=== PATIENT | male | born 1950 | race Caucasian/White ===

== ENCOUNTER 2021-01-16 13:31 | Emergency (ER) | payer MEDICARE ==
--- NOTE | 2021-01-16 13:40 | EDM.PDOC ---
ED HPI GENERAL MEDICAL PROBLEM - General Stated Complaint: SOB, COUGH Time Seen by Provider: 01/16/21 13:38 Source of Information: Reports: Patient History Limitations: Reports: No Limitations - History of Present Illness INITIAL COMMENTS - FREE TEXT/NARRATIVE: 70-year-old male who reports onset of nasal congestion, cough, body aches and nausea with diarrhea beginning approximately 01/09/2021.e reports that he lost taste and smell sense on about day 2 or 3 and he reports that he has had little appetite and poor food intake. He also has been having some intermittent subjective fevers. He reports he has been trying to drink liquids and has had good urine output. He feels that the diarrhea has become less that was initially but he did have one loose stool today. There was no blood in his stool. He has had no vomiting. He feels that the cough has been progressively worsening and he feels somewhat short of breath with the coughing episodes. The cough has been hacking and mostly nonproductive. He does feel weak all over. Today, at approximately 1 PM, he was sitting in his office at home and apparently had a syncopal episode. He had been feeling somewhat weak prior to this and his came back to check on him and noted that he was slumped over in the chair and was not responsive to her. There was no seizure activity noted by the . The patient came to within a minute or less and was apparently responding normally but the patient didn't feel weak at this time. He did not have any chest pain. He denies any pain in reports 0/10 level pain at present. He does report that he has had some mild generalized body aches but no chest pain or abdominal pain or back pain previously as well. He did not receive the Covid 19 vaccine. There are no other associated signs or symptoms. There are no other modifying factors. Onset: Other (01/09/2021) Duration: Getting Worse Location: Reports: Generalized (Mild generalized bodyaches but he denies any pain right now.) Quality: Reports: Ache Severity: Mild Improves with: Reports: None Worsens with: Reports: None Context: Reports: Other (As above.) Associated Symptoms: Reports: Cough, Fever/Chills, Shortness of Breath Treatments [employer] WORK[employer]: Reports: Acetaminophen, Other Medication(s) (Prednisone 20 mg daily for the past 3 days.) - Related Data Allergies Allergy/AdvReac Type Severity Reaction Status Date / Time No Known Allergies Allergy Verified 01/16/21 13:39 Home Meds: Home Meds Aspirin 81 mg DAILY 01/16/21 [History] Benzonatate [Tessalon Perle] 100 mg PO Q6H PRN #20 capsule 01/16/21 [Rx] Cetirizine [ZyrTEC] 10 mg DAILY 01/16/21 [History] Folic Acid 1 mg DAILY 01/16/21 [History] Losartan [Cozaar] 100 mg PO DAILY 01/16/21 [History] Methotrexate 2.5 mg PO WEEKLY 01/16/21 [History] Sildenafil [Revatio] 20 mg TID 01/16/21 [History] Simvastatin 80 mg BEDTIME 01/16/21 [History] cephALEXin [Cephalexin] 500 mg TID 01/16/21 [History] traZODone 100 mg DAILY 01/16/21 [History] Past Medical History Cardiovascular History: Reports: Hypertension, Other (See Below) (Hyperlipidemi a) Respiratory History: Reports: Sleep Apnea (On CPAP) Musculoskeletal History: Reports: Osteoarthritis, RA, Other (See Below) (PMR) Dermatologic History: Reports: Other (See Below) (Periodic hydradenitis. Lower extremity vascular insufficiency bilaterally) - Past Surgical History HEENT Surgical History: Reports: Detached Retina GI Surgical History: Reports: Hernia, Abdominal (Umbilical), Hernia, Inguinal (2) Neurological Surgical History: Reports: Laminectomy (With fusion in the lumbar region) Musculoskeletal Surgical History: Reports: Other (See Below) (Knee arthrodesis) Social & Family History - Tobacco Use Tobacco Use Status *Q: Unknown Ever Used Tobacco (Nonsmoker.) - Alcohol Use Alcohol Use History: Yes Alcohol Use Frequency: Weekly (Uses one to 2 ounces 3-4 times a week.) - Recreational Drug Use Recreational Drug Use: No - Living Situation & Occupation Living situation: Reports: Occupation: Retired 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 ED ROS GENERAL - Review of Systems Review Of Systems: See Below Constitutional: Reports: Fever, Malaise, Weakness, Fatigue, Diaphoresis, Decreased Appetite HEENT: Reports: Throat Pain, Other (Nasal congestion.) Respiratory: Reports: Shortness of Breath, Cough Cardiovascular: Reports: Lightheadedness, Syncope. Denies: Chest Pain Endocrine: Reports: Fatigue GI/Abdominal: Reports: Diarrhea, Nausea. Denies: Abdominal Pain, Vomiting : Denies: Dysuria, Hematuria Musculoskeletal: Reports: Other (Some generalized body aches.) Skin: Reports: Diaphoresis (As above). Denies: Cyanosis, Rash Neurological: Reports: Syncope. Denies: Headache Hematologic/Lymphatic: Denies: Anemia, Easy Bleeding ED EXAM, GENERAL - Physical Exam Exam: See Below Exam Limited By: No Limitations General Appearance: Alert, WD/WN, No Apparent Distress (No respiratory distress.) Eye Exam: Bilateral Eye: EOMI, Normal Inspection Ears: Normal External Exam, Hearing Grossly Normal Ear Exam: Bilateral Ear: Auricle Normal Nose: No Blood, Nasal Drainage Throat/Mouth: Normal Voice, No Airway Compromise, Other (Dry mucous membranes) Head: Atraumatic, Normocephalic Neck: Normal Inspection, Supple, Non-Tender, Full Range of Motion Respiratory/Chest: No Respiratory Distress, No Accessory Muscle Use, Chest Non- Tender, Rales (Scattered bilaterally), Rhonchi (Bilaterally.) Cardiovascular: Normal Peripheral Pulses, Regular Rate, Rhythm, No JVD, No Murmur Peripheral Pulses: 2+: Radial (L), Radial (R) GI/Abdominal: Normal Bowel Sounds, Soft, Non-Tender, No Distention Back Exam: Normal Inspection, Full Range of Motion Extremities: Normal Inspection, Normal Range of Motion, Non-Tender, Normal Capillary Refill, Other (Some swelling in the right lower leg which is chronic according to the patient.) Neurological: Alert, Oriented, CN II-XII Intact, Normal Cognition, No Motor/Sensory Deficits Psychiatric: Normal Affect, Normal Mood Skin Exam: Warm, Dry, Intact, Normal Color, No Rash #1 Interpretation EKG Date: 01/16/21 Time: 13:30 Rhythm: NSR Rate (Beats/Min): 71 Alexander: Normal QRS: Other (Borderline IVCD) ST-T: Normal QT: Normal Comparison: NA - No Prior EKG Course - Vital Signs Last Recorded V/S: Last Vital Signs Temp 37.2 C 01/16/21 13:42 Pulse 70 01/16/21 13:42 Resp 17 01/16/21 13:42 BP 137/68 01/16/21 13:42 Pulse Ox 94 L 01/16/21 13:42 - Orders/Labs/Meds Orders: Active Orders 24 hr Category Date Time Status Vital Signs [RC] Q15M Care 01/16/21 15:21 Active Chest 1V Frontal [CR] Stat Exams 01/16/21 13:41 Taken Sodium Chloride 0.9% [Saline Flush] Med 01/16/21 13:41 Active 10 ml FLUSH ASDIRECTED PRN Sodium Chloride 0.9% [Saline Flush] Med 01/16/21 15:30 Active 30 ml FLUSH ASDIRECTED Peripheral IV Insertion Adult [OM.PC] Routine Oth 01/16/21 13:41 Ordered EKG 12 Lead [EK] Routine Ther 01/16/21 13:40 Ordered Medication Orders Sodium Chloride (Sodium Chloride 0.9% 10 Ml Syringe) 10 ml FLUSH ASDIRECTED PRN PRN Reason: Keep Vein Open Last Admin: 01/16/21 13:55 Dose: 10 ml Documented by: SKY Sodium Chloride (Sodium Chloride 0.9% 10 Ml Syringe) 30 ml FLUSH ASDIRECTED CARITO Labs: Laboratory Tests 01/16/21 01/16/21 01/16/21 Range/Units 13:24 13:55 13:55 WBC 5.7 (3.2-10.1) x10-3/uL RBC 4.53 (3.90-5.90) x10(6)uL Hgb 13.5 (12.9-17.7) g/dL Hct 40.5 (38.3-50.1) % MCV 89.4 (80.8-98.7) fL MCH 29.8 (27.0-33.3) pg MCHC 33.4 (28.7-35.3) g/dL RDW 13.7 (12.4-15.0) % Plt Count 216 (117-477) x10(3)uL MPV 7.6 (6.7-11.0) fL Neut % (Auto) 81.4 H (40.3-71.8) % Lymph % (Auto) 10.1 L (15.8-45.3) % Platte % (Auto) 8.1 (5.5-15.2) % Eos % (Auto) 0.1 (0.1-6.8) % Baso % (Auto) 0.3 (0.3-3.8) % Neut # (Auto) 4.7 (1.7-6.9) x10-3/uL Lymph # (Auto) 0.6 (0.5-4.5) x10-3/uL Platte # (Auto) 0.5 (0.0-1.2) x10-3/uL Eos # (Auto) 0.0 (0.0-0.6) x10-3/uL Baso # (Auto) 0.0 (0.0-0.3) x10-3/uL Sodium 137 (135-145) mmol/L Potassium 3.8 (3.5-5.3) mmol/L Chloride 99 L (100-110) mmol/L Carbon Dioxide 30 (21-32) mmol/L BUN 19 H (7-18) mg/dL Creatinine 1.1 (0.70-1.30) mg/dL Est Cr Clr Drug Dosing 70.62 mL/min Estimated GFR (MDRD) > 60 (>60) BUN/Creatinine Ratio 17.3 (9-20) Glucose 136 H (80-116) mg/dL Calcium 8.2 L (8.6-10.2) mg/dL Magnesium 2.0 (1.8-2.5) mg/dL Total Bilirubin 0.7 (0.1-1.3) mg/dL AST 46 H (5-25) IU/L ALT 44 H (12-36) U/L Alkaline Phosphatase 67 (56-112) IU/L Troponin I (4.0-60.3) pg/mL C-Reactive Protein (0.5-0.9) mg/dL Total Protein 6.9 (6.0-8.0) g/dL Albumin 3.0 L (3.2-4.6) g/dL Globulin 3.9 g/dL Albumin/Globulin Ratio 0.8 SARS-CoV-2 RNA (NELLIE) Positive H (NEGATIVE) 01/16/21 Range/Units 13:55 WBC (3.2-10.1) x10-3/uL RBC (3.90-5.90) x10(6)uL Hgb (12.9-17.7) g/dL Hct (38.3-50.1) % MCV (80.8-98.7) fL MCH (27.0-33.3) pg MCHC (28.7-35.3) g/dL RDW (12.4-15.0) % Plt Count (117-477) x10(3)uL MPV (6.7-11.0) fL Neut % (Auto) (40.3-71.8) % Lymph % (Auto) (15.8-45.3) % Platte % (Auto) (5.5-15.2) % Eos % (Auto) (0.1-6.8) % Baso % (Auto) (0.3-3.8) % Neut # (Auto) (1.7-6.9) x10-3/uL Lymph # (Auto) (0.5-4.5) x10-3/uL Platte # (Auto) (0.0-1.2) x10-3/uL Eos # (Auto) (0.0-0.6) x10-3/uL Baso # (Auto) (0.0-0.3) x10-3/uL Sodium (135-145) mmol/L Potassium (3.5-5.3) mmol/L Chloride (100-110) mmol/L Carbon Dioxide (21-32) mmol/L BUN (7-18) mg/dL Creatinine (0.70-1.30) mg/dL Est Cr Clr Drug Dosing mL/min Estimated GFR (MDRD) (>60) BUN/Creatinine Ratio (9-20) Glucose (80-116) mg/dL Calcium (8.6-10.2) mg/dL Magnesium (1.8-2.5) mg/dL Total Bilirubin (0.1-1.3) mg/dL AST (5-25) IU/L ALT (12-36) U/L Alkaline Phosphatase (56-112) IU/L Troponin I 7.7 (4.0-60.3) pg/mL C-Reactive Protein 10.8 H* (0.5-0.9) mg/dL Total Protein (6.0-8.0) g/dL Albumin (3.2-4.6) g/dL Globulin g/dL Albumin/Globulin Ratio SARS-CoV-2 RNA (NELLIE) (NEGATIVE) Meds: Medications Generic Name Dose Route Start Last Admin Trade Name Freq PRN Reason Stop Dose Admin Sodium Chloride 10 ml 01/16/21 13:41 01/16/21 13:55 Sodium Chloride 0.9% 10 Ml Syringe FLUSH 10 ml ASDIRECTED PRN Administration Keep Vein Open Sodium Chloride 30 ml 01/16/21 15:30 Sodium Chloride 0.9% 10 Ml Syringe FLUSH ASDIRECTED CARITO Discontinued Medications Generic Name Dose Route Start Last Admin Trade Name Davidq PRN Reason Stop Dose Admin Sodium Chloride 1,000 mls @ 999 mls/hr 01/16/21 14:19 01/16/21 14:00 Normal Saline IV 01/16/21 15:19 999 mls/hr .BOLUS ONE Administration CASIRIVIMAB/IMDEVIMAB 10 ml/ 110 mls @ 220 mls/hr 01/16/21 15:45 Sodium Chloride IV 01/16/21 16:14 ONETIME ONE - Radiology Interpretation Free Text/Narrative:: Portable chest x-ray showed some patchy infiltrates bilaterally with left greater than right per my read. - Re-Assessments/Exams Free Text/Narrative Re-Assessment/Exam: 01/16/21 15:00: Patient's rapid coven was positive. His white blood cell count was normal. His hemoglobin was normal. His platelet count was normal. He did have some very mild AST and ALT elevations. His BUN was 19 and his creatinine was normal. His magnesium was normal. A troponin was normal. An EKG was normal. His chest x-ray did show some mild patchy infiltrates on the left. The patient has received 1 L of normal saline as a bolus and he does feel improved. He has remained hemodynamically and respiratory stable with O2 saturations of 94% or greater. The patient has been criteria for receiving BAM therapy. I have discussed this with the patient. I have discussed with him the potential risk and benefits of this therapy. I discussed it with his as well who was present in the room with him and the patient wants to receive monoclonal antibody therapy for Covid 19. The patient is much improved. He does not need admission at this time. Treatment will continue to be as outpatient. We will arrange for the patient to receive the monoclonal antibody therapy. Precautions and reasons to return to the emergency department discussed with the patient and his while the patient was in the emergency department and were detailed in the patient's discharge instructions. The patient will be discharged after the BAM infusion. 01/16/21 17:01: Patient has received the monoclonal antibody therapy and does no t appear to be having any problems from it. He has remained hemodynamically and respiratory stable. He will be discharged in 15 minutes. 01/16/21 17:15: Patient did request a prescription for Tessalon Perles. I provided that for him. This prescription was electronically sent to his pharmacy. Departure - Departure Time of Disposition: 17:15 Disposition: Home, Self-Care 01 Condition: Good Clinical Impression: COVID-19 virus infection, Vasovagal syncope, Dehydration, Pneumonia due to COVID-19 virus - Discharge Information Prescriptions: Benzonatate [Tessalon Perle] 100 mg PO Q6H PRN #20 capsule PRN Reason: Cough Instructions: Things to Know about the COVID-19 Pandemic - [facility] (06/22/2020), Rehydration, Adult, COVID-19: Quarantine vs. Isolation - [facility] (03/24/2020), Syncope, [id number], Dehydration, Adult Referrals: Og De La O DO [Primary Care Provider] - Forms: ED Department Discharge Additional Instructions: You have Covid 19 infection and you also have mild pneumonia related to this. All of your blood tests are reassuring. Her oxygen saturation was normal. Your blood pressure and pulse remained normal throughout the emergency department visit. You appear to have had a vasovagal episode of syncope. You also appeared to be somewhat dehydrated. You were given IV fluids to help correct this but you need to increase your fluid intake. You can take Tylenol and ibuprofen as needed for pain or fever. You were given monoclonal antibody therapy for Covid 19 today. You should get home O2 saturation monitor so that you can monitor her oxygen levels at home. If your oxygen no moguls are consistently below 90%, you should come back to the emergency department. Back to the emergency department for uncontrolled vomiting, severe weakness, worse breathing or any other concerning signs or symptoms. Sepsis Event Note (ED) - Focused Exam Vital Signs: Vital Signs Temp Pulse Resp BP Pulse Ox 01/16/21 13:42 37.2 C 70 17 137/68 94 L - My Orders Last 24 Hours: My Active Orders 01/16/21 13:40 EKG 12 Lead [EK] Routine 01/16/21 13:41 Chest 1V Frontal [CR] Stat Sodium Chloride 0.9% [Saline Flush] 10 ml FLUSH ASDIRECTED PRN Peripheral IV Insertion Adult [OM.PC] Routine 01/16/21 15:21 Vital Signs [RC] Q15M 01/16/21 15:30 Sodium Chloride 0.9% [Saline Flush] 30 ml FLUSH ASDIRECTED - Assessment/Plan Last 24 Hours: My Active Orders 01/16/21 13:40 EKG 12 Lead [EK] Routine 01/16/21 13:41 Chest 1V Frontal [CR] Stat Sodium Chloride 0.9% [Saline Flush] 10 ml FLUSH ASDIRECTED PRN Peripheral IV Insertion Adult [OM.PC] Routine 01/16/21 15:21 Vital Signs [RC] Q15M 01/16/21 15:30 Sodium Chloride 0.9% [Saline Flush] 30 ml FLUSH ASDIRECTED
[2021-01-16] MEDS ORDERED: Sodium Chloride 0.9% 10 ML Syringe FLUSH PRN (13:41)
[2021-01-16] MEDS ORDERED: Sodium Chloride 0.9% 1,000 ML IV ONE (14:19)
[2021-01-16] MEDS ORDERED: Sodium Chloride 0.9% 10 ML Syringe FLUSH SCH (15:30)
--- NOTE | 2021-01-16 19:46 | CR ---
INDICATION: Cough and shortness of breath. CHEST, ONE VIEW: An AP portable upright view of the chest was obtained 01/16/21 - no comparisons. The heart did not appear enlarged, allowing for the AP positioning. Overlying EKG leads are noted. Some minimal calcification is noted in the arch of the aorta. The aorta is minimally tortuous. There is an appearance of minimal patchy infiltration scattered throughout the lungs, which could be on the basis of pulmonary fibrosis, although minimal patchy areas of pneumonia cannot be excluded with this appearance. The chest was otherwise unremarkable. MTDD
== END 2021-01-16 17:22 | disposition home or self-care (01) ==
LOC: FB.ED 13:31
DX: U07.1 COVID-19 (principal); J12.82 Pneumonia due to coronavirus disease 2019; E86.0 Dehydration; I10 Essential (primary) hypertension; E78.5 Hyperlipidemia, unspecified; Z79.82 Long term (current) use of aspirin; Z79.899 Other long term (current) drug therapy
CPT/HCPCS: 36415; 71045; 80053; 83735; 84484; 85025; 86140; 93005; 99284; J7030; M0243; Q0243; U0002

== ENCOUNTER 2021-01-21 13:34 | Inpatient (IN) | payer MEDICARE ==
--- NOTE | 2021-01-21 13:45 | EDM.PDOC ---
ED HPI GENERAL MEDICAL PROBLEM - General Chief Complaint: Respiratory Problem Stated Complaint: COVID Time Seen by Provider: 01/21/21 13:43 Source of Information: Reports: Patient History Limitations: Reports: No Limitations - History of Present Illness INITIAL COMMENTS - FREE TEXT/NARRATIVE: 70-year-old male who was diagnosed with Covid pneumonia on 01/16/2021 and was seen by myself at that time. He was oxygenating okay and had normal respiratory rate and did seem to be somewhat dehydrated on that visit that this was corrected with IV fluids. He was given monoclonal antibody therapy and was sent home for home care. According to him over the past few days he has had O2 saturations of been down to 85% on room air when he awakens and usually goes up to 91-92% later on in the day. He has noticed progressive weakness over the past 2 days with increased difficulty breathing and decreased ability to get around. The reports that she has been trying to make sure that he has been drinking plenty of fluids and has tried to push some nutrition. 4 she feels worse than he did on Saturday and particularly he feels more short of breath. He has a persisting headache that he rates as a 3/10. It is global and aching and throbbing. No syncope or presyncope. No abdominal pain. No diarrhea. The symptoms actually began on 01/09/2021. There are no leg pains. There is no back pain. He does report that he is still having fevers. There are no other associated signs or symptoms. There are no other modifying factors. 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, Home Treatments, NSAIDS (Ibuprofen) Headache Pain Score (Numeric/FACES): 3 - Related Data Allergies Allergy/AdvReac Type Severity Reaction Status Date / Time No Known Allergies Allergy Verified 01/16/21 13:39 Home Meds: Home Meds Aspirin 81 mg DAILY 01/16/21 [History] Benzonatate [Tessalon Perle] 100 mg PO Q6H PRN #20 capsule 01/16/21 [Rx] Cetirizine [ZyrTEC] 10 mg DAILY 01/16/21 [History] Folic Acid 1 mg DAILY 01/16/21 [History] Losartan [Cozaar] 100 mg PO DAILY 01/16/21 [History] Methotrexate 2.5 mg PO WEEKLY 01/16/21 [History] Sildenafil [Revatio] 20 mg TID 01/16/21 [History] Simvastatin 80 mg BEDTIME 01/16/21 [History] cephALEXin [Cephalexin] 500 mg TID 01/16/21 [History] traZODone 100 mg DAILY 01/16/21 [History] Past Medical History Cardiovascular History: Reports: Hypertension, Other (See Below) (Hyperlipidemia) Respiratory History: Reports: Sleep Apnea (On CPAP) Musculoskeletal History: Reports: Osteoarthritis, RA, Other (See Below) (PMR) Other Musculoskeletal History: Chondrocalcinosis knees Dermatologic History: Reports: Other (See Below) (Periodic hydradenitis. Lower extremity vascular insufficiency bilaterally) - Infectious Disease History Infectious Disease History: Reports: Novel Coronavirus - Past Surgical History HEENT Surgical History: Reports: Detached Retina GI Surgical History: Reports: Hernia, Abdominal (Umbilical), Hernia, Inguinal (2) Neurological Surgical History: Reports: Laminectomy (With fusion in the lumbar region) Musculoskeletal Surgical History: Reports: Other (See Below) (Knee arthrodesis) Social & Family History - Tobacco Use Tobacco Use Status *Q: Unknown Ever Used Tobacco (Nonsmoker) - Caffeine Use Caffeine Use: Reports: Coffee - Living Situation & Occupation Living situation: Reports: Occupation: Retired ED ROS GENERAL - Review of Systems Review Of Systems: See Below Constitutional: Reports: Fever, Chills, Malaise, Weakness, Fatigue HEENT: Reports: Throat Pain Respiratory: Reports: Shortness of Breath, Cough, Sputum Cardiovascular: Reports: Chest Pain, Dyspnea on Exertion Endocrine: Reports: Fatigue GI/Abdominal: Denies: Abdominal Pain, Nausea, Vomiting : Reports: Other (Decreased urine output). Denies: Dysuria, Hematuria Musculoskeletal: Reports: Back Pain Skin: Denies: Diaphoresis, Rash Neurological: Reports: Weakness. Denies: Confusion Psychiatric: Denies: Confusion, Depression Hematologic/Lymphatic: Denies: Easy Bleeding, Easy Bruising ED EXAM, GENERAL - Physical Exam Exam: See Below Exam Limited By: No Limitations General Appearance: Alert, WD/WN, Moderate Distress (Increased respiratory rate) Eye Exam: Bilateral Eye: EOMI, Normal Inspection (Sclera are anicteric), PERRL Ears: Normal External Exam, Hearing Grossly Normal Ear Exam: Bilateral Ear: Auricle Normal Nose: Nasal Drainage Throat/Mouth: Normal Lips, Normal Voice, No Airway Compromise, Other (Somewhat dry mucous membranes.) Head: Atraumatic, Normocephalic Neck: Normal Inspection, Supple, Non-Tender, Full Range of Motion Respiratory/Chest: Rhonchi, Wheezing, Accessory Muscle Use Cardiovascular: Normal Peripheral Pulses, Regular Rate, Rhythm Peripheral Pulses: 2+: Radial (L), Radial (R), Dorsalis Pedis (L), Dorsalis Pedis (R) GI/Abdominal: Normal Bowel Sounds, Soft, Non-Tender, No Mass Back Exam: Normal Inspection, Full Range of Motion. No: CVA Tenderness (R), CVA Tenderness (L) Extremities: Normal Inspection, Normal Range of Motion, No Pedal Edema, Normal Capillary Refill Neurological: Alert, Oriented, CN II-XII Intact, Normal Cognition, No Motor/Sensory Deficits Psychiatric: Normal Affect, Normal Mood Skin Exam: Warm, Dry, Intact, Normal Color, No Rash #1 Interpretation EKG Date: 01/21/21 Time: 14:59 Rhythm: NSR Rate (Beats/Min): 74 Surprise: Normal P-Wave: Present QRS: Other (IVCD with possible incomplete RBBB.) ST-T: Normal QT: Prolonged (Slightly prolonged QTc) Comparison: No Change (No significant change from an EKG performed on 01/16/2021.) Course - Vital Signs Last Recorded V/S: Last Vital Signs Temp 37.7 C 01/21/21 13:35 Pulse 86 01/21/21 13:35 Resp 22 H 01/21/21 13:35 BP 140/68 01/21/21 13:35 Pulse Ox 91 L 01/21/21 13:35 - Orders/Labs/Meds Orders: Active Orders 24 hr Category Date Time Status Admission Status [Patient Status] [ADT] Routine ADT 01/21/21 17:06 Active Cardiac Monitoring [RC] .As Directed Care 01/21/21 17:06 Active EKG Documentation Completion [RC] ASDIRECTED Care 01/21/21 14:15 Active Ang Chest [CT] Stat Exams 01/21/21 15:34 Taken CULTURE BLOOD [BC] Urgent Lab 01/21/21 14:40 Received CULTURE BLOOD [BC] Urgent Lab 01/21/21 14:50 Received Sodium Chloride 0.9% [Normal Saline] 1,000 ml Med 01/21/21 14:45 Active IV ASDIRECTED Sodium Chloride 0.9% [Saline Flush] Med 01/21/21 14:14 Active 10 ml FLUSH ASDIRECTED PRN Blood Culture x2 Reflex Set [OM.PC] Urgent Oth 01/21/21 14:15 Ordered Peripheral IV Insertion Adult [OM.PC] Routine Oth 01/21/21 14:14 Ordered EKG 12 Lead [EK] Routine Ther 01/21/21 14:14 Ordered Medication Orders Sodium Chloride (Normal Saline) 1,000 mls @ 150 mls/hr IV ASDIRECTED CARITO Sodium Chloride (Sodium Chloride 0.9% 10 Ml Syringe) 10 ml FLUSH ASDIRECTED PRN PRN Reason: Keep Vein Open Labs: Laboratory Tests 01/21/21 01/21/21 01/21/21 Range/Units 14:40 14:40 14:40 WBC 10.7 H (3.2-10.1) x10-3/uL RBC 4.20 (3.90-5.90) x10(6)uL Hgb 12.5 L (12.9-17.7) g/dL Hct 37.4 L (38.3-50.1) % MCV 89.1 (80.8-98.7) fL MCH 29.8 (27.0-33.3) pg MCHC 33.4 (28.7-35.3) g/dL RDW 13.3 (12.4-15.0) % Plt Count 369 (117-477) x10(3)uL MPV 6.7 (6.7-11.0) fL Add Manual Diff Yes Neutrophils % (Manual) 84 H (46-82) % Band Neutrophils % 1 (0-6) % Lymphocytes % (Manual) 5 L (13-37) % Monocytes % (Manual) 10 (4-12) % D-Dimer, Quantitative 4.04 H (0.0-0.59) mg/LFEU POC VBG pH (7.32-7.43) pH Units POC VBG pCO2 (41-51) mmHg POC VBG HCO3 (22-29) mmol/L VBG Base Excess (-2 - 3+) mmol/L O2 Delivery Device Oxygen Flow Rate LPM Sodium 137 (135-145) mmol/L Potassium 4.0 (3.5-5.3) mmol/L Chloride 102 (100-110) mmol/L Carbon Dioxide 28 (21-32) mmol/L BUN 13 (7-18) mg/dL Creatinine 0.9 (0.70-1.30) mg/dL Est Cr Clr Drug Dosing 86.31 mL/min Estimated GFR (MDRD) > 60 (>60) BUN/Creatinine Ratio 14.4 (9-20) Glucose 135 H (80-116) mg/dL Lactic Acid (0.4-2.0) mmol/L Calcium 8.3 L (8.6-10.2) mg/dL Magnesium 2.1 (1.8-2.5) mg/dL Total Bilirubin 2.0 H (0.1-1.3) mg/dL AST 85 H D (5-25) IU/L ALT 127 H D (12-36) U/L Alkaline Phosphatase 169 H (56-112) IU/L Troponin I (4.0-60.3) pg/mL C-Reactive Protein (0.5-0.9) mg/dL Total Protein 6.7 (6.0-8.0) g/dL Albumin 2.3 L (3.2-4.6) g/dL Globulin 4.4 g/dL Albumin/Globulin Ratio 0.5 01/21/21 01/21/21 01/21/21 Range/Units 14:40 14:40 14:40 WBC (3.2-10.1) x10-3/uL RBC (3.90-5.90) x10(6)uL Hgb (12.9-17.7) g/dL Hct (38.3-50.1) % MCV (80.8-98.7) fL MCH (27.0-33.3) pg MCHC (28.7-35.3) g/dL RDW (12.4-15.0) % Plt Count (117-477) x10(3)uL MPV (6.7-11.0) fL Add Manual Diff Neutrophils % (Manual) (46-82) % Band Neutrophils % (0-6) % Lymphocytes % (Manual) (13-37) % Monocytes % (Manual) (4-12) % D-Dimer, Quantitative (0.0-0.59) mg/LFEU POC VBG pH (7.32-7.43) pH Units POC VBG pCO2 (41-51) mmHg POC VBG HCO3 (22-29) mmol/L VBG Base Excess (-2 - 3+) mmol/L O2 Delivery Device Oxygen Flow Rate LPM Sodium (135-145) mmol/L Potassium (3.5-5.3) mmol/L Chloride (100-110) mmol/L Carbon Dioxide (21-32) mmol/L BUN (7-18) mg/dL Creatinine (0.70-1.30) mg/dL Est Cr Clr Drug Dosing mL/min Estimated GFR (MDRD) (>60) BUN/Creatinine Ratio (9-20) Glucose (80-116) mg/dL Lactic Acid 1.5 (0.4-2.0) mmol/L Calcium (8.6-10.2) mg/dL Magnesium (1.8-2.5) mg/dL Total Bilirubin (0.1-1.3) mg/dL AST (5-25) IU/L ALT (12-36) U/L Alkaline Phosphatase (56-112) IU/L Troponin I 7.1 (4.0-60.3) pg/mL C-Reactive Protein 39.1 H* (0.5-0.9) mg/dL Total Protein (6.0-8.0) g/dL Albumin (3.2-4.6) g/dL Globulin g/dL Albumin/Globulin Ratio 01/21/ Range/Units 15:12 WBC (3.2-10.1) x10-3/uL RBC (3.90-5.90) x10(6)uL Hgb (12.9-17.7) g/dL Hct (38.3-50.1) % MCV (80.8-98.7) fL MCH (27.0-33.3) pg MCHC (28.7-35.3) g/dL RDW (12.4-15.0) % Plt Count (117-477) x10(3)uL MPV (6.7-11.0) fL Add Manual Diff Neutrophils % (Manual) (46-82) % Band Neutrophils % (0-6) % Lymphocytes % (Manual) (13-37) % Monocytes % (Manual) (4-12) % D-Dimer, Quantitative (0.0-0.59) mg/LFEU POC VBG pH 7.49 H (7.32-7.43) pH Units POC VBG pCO2 38 L (41-51) mmHg POC VBG HCO3 29 (22-29) mmol/L VBG Base Excess 6 H (-2 - 3+) mmol/L O2 Delivery Device Nasal cannula Oxygen Flow Rate 2 LPM Sodium (135-145) mmol/L Potassium (3.5-5.3) mmol/L Chloride (100-110) mmol/L Carbon Dioxide (21-32) mmol/L BUN (7-18) mg/dL Creatinine (0.70-1.30) mg/dL Est Cr Clr Drug Dosing mL/min Estimated GFR (MDRD) (>60) BUN/Creatinine Ratio (9-20) Glucose (80-116) mg/dL Lactic Acid (0.4-2.0) mmol/L Calcium (8.6-10.2) mg/dL Magnesium (1.8-2.5) mg/dL Total Bilirubin (0.1-1.3) mg/dL AST (5-25) IU/L ALT (12-36) U/L Alkaline Phosphatase (56-112) IU/L Troponin I (4.0-60.3) pg/mL C-Reactive Protein (0.5-0.9) mg/dL Total Protein (6.0-8.0) g/dL Albumin (3.2-4.6) g/dL Globulin g/dL Albumin/Globulin Ratio Meds: Medications Generic Name Dose Route Start Last Admin Trade Name Freq PRN Reason Stop Dose Admin Sodium Chloride 1,000 mls @ 150 mls/hr 01/21/21 14:45 Normal Saline IV ASDIRECTED CARITO Sodium Chloride 10 ml 01/21/21 14:14 Sodium Chloride 0.9% 10 Ml Syringe FLUSH ASDIRECTED PRN Keep Vein Open Discontinued Medications Generic Name Dose Route Start Last Admin Trade Name Freq PRN Reason Stop Dose Admin Dexamethasone 6 mg 01/21/21 15:07 01/21/21 15:44 Dexamethasone 4 Mg/Ml Sdv IVPUSH 01/21/21 15:08 6 mg ONETIME ONE Administration Sodium Chloride 500 mls @ 999 mls/hr 01/21/21 14:33 Normal Saline IV 01/21/21 15:03 .BOLUS ONE Iopamidol 85 ml 01/21/21 15:52 Iopamidol 755 Mg/Ml 100 Ml Bottle IV 01/21/21 15:53 . DIRECTED ONE - Re-Assessments/Exams Free Text/Narrative Re-Assessment/Exam: 01/21/21 15:35: Blood blood cell count was 10,000. The H&H was normal. The serum electrolyte profile was normal. There are mild AST and ALT elevations. The CRP was 39.1. The d-dimer was 4.04 which is markedly elevated. I also did a venous gas and that was reassuring. The patient is maintaining O2 sats of 94% on 2 L/m via nasal cannula. His work of breathing is still somewhat respiratory rate but he states he feels improved area and he has received normal saline 500 mL of bolus. He also has had Decadron 6 mg ordered to be given IV. I preliminarily discussed the patient's case with Dr. Oakes in regard to potential admission to our facility. I will send the patient her CTA of his chest to further assess for the possibility of PE. The patient and his are in agreement with this plan. Departure - Departure Time of Disposition: 17:06 Disposition: Admitted As Inpatient 66 Condition: Fair Clinical Impression: Pneumonia due to COVID-19 virus Respiratory failure with hypoxia Qualifiers: Chronicity: acute Qualified Code(s): J96.01 - Acute respiratory failure with hypoxia - Discharge Information Referrals: Og De La O DO [Primary Care Provider] - Forms: ED Department Discharge Sepsis Event Note (ED) - Focused Exam Vital Signs: Vital Signs Temp Pulse Resp BP Pulse Ox 01/21/21 13:35 37.7 C 86 22 H 140/68 91 L - My Orders Last 24 Hours: My Active Orders 01/21/21 14:14 Sodium Chloride 0.9% [Saline Flush] 10 ml FLUSH ASDIRECTED PRN Peripheral IV Insertion Adult [OM.PC] Routine EKG 12 Lead [EK] Routine 01/21/21 14:15 EKG Documentation Completion [RC] ASDIRECTED Blood Culture x2 Reflex Set [OM.PC] Urgent 01/21/21 14:40 CULTURE BLOOD [BC] Urgent 01/21/21 14:45 Sodium Chloride 0.9% [Normal Saline] 1,000 ml IV ASDIRECTED 01/21/21 14:50 CULTURE BLOOD [BC] Urgent 01/21/21 15:34 Ang Chest [CT] Stat 01/21/21 17:06 Admission Status [Patient Status] [ADT] Routine Cardiac Monitoring [RC] .As Directed - Assessment/Plan Last 24 Hours: My Active Orders 01/21/21 14:14 Sodium Chloride 0.9% [Saline Flush] 10 ml FLUSH ASDIRECTED PRN Peripheral IV Insertion Adult [OM.PC] Routine EKG 12 Lead [EK] Routine 01/21/21 14:15 EKG Documentation Completion [RC] ASDIRECTED Blood Culture x2 Reflex Set [OM.PC] Urgent 01/21/21 14:40 CULTURE BLOOD [BC] Urgent 01/21/21 14:45 Sodium Chloride 0.9% [Normal Saline] 1,000 ml IV ASDIRECTED 01/21/21 14:50 CULTURE BLOOD [BC] Urgent 01/21/21 15:34 Ang Chest [CT] Stat 01/21/21 17:06 Admission Status [Patient Status] [ADT] Routine Cardiac Monitoring [RC] .As Directed
[2021-01-21] MEDS ORDERED: Sodium Chloride 0.9% 10 ML Syringe FLUSH PRN (14:14)
[2021-01-21] MEDS ORDERED: Sodium Chloride 0.9% 500 ML IV ONE (14:33)
[2021-01-21] MEDS ORDERED: Dexamethasone 4 MG/ML SDV IVPUSH ONE (15:07)
[2021-01-21 15:15] LABS: BASE EXCESS VENOUS,POC 6 mmol/L (-2 - 3+); PCO2 VENOUS,POC 38 mmHg (41-51); PH VENOUS,POC 7.49 pH Units (7.32-7.43)
[2021-01-21] MEDS ORDERED: Iopamidol 755 Mg/ML 100 ML Bottle IV ONE (15:52)
[2021-01-21] MEDS ORDERED: Ondansetron 4 MG Tab.DIS PO PRN (17:59)
--- NOTE | 2021-01-21 18:16 | PCM.HP.2 ---
H&P History of Present Illness - General Date of Service: 01/21/21 Admit Problem/Dx: Admission Diagnosis/Problem Admission Diagnosis/Problem Pneumonia Source of Information: Patient, Family, Provider History Limitations: Reports: No Limitations - History of Present Illness Initial Comments - Free Text/Narative: Lior presented to ER with worsening shortness of breath, weakness. He had presented to ER on 01/16 was diagnosed with Covid, symptoms had started on 01/09, loss of taste, smell, shortness of breath, cough, diarrhea. He was saturating well on 01/16, did not require hospitalization and received Monoclonal antibody at that time as well as IVF. His was encouraging fluids since then, has had no appetite; has had increased headache(06/15), chest pain and shortness of breath. His saturations at home have been 85% when he wakes up and then goes up to 91-92% later in the day. Had progressive weakness over the past 2 days, decreased ability to get around. His reported 36.9C fever, has not taken Tylenol for this. He also has been taking Tesselon perles, Zinc 100 mg and Vitamin D3 10,000 units daily. No ear pain, sinus congestion, sore throat, abdominal pain, nausea, vomiting, diarrhea, dysuria, frequency, or hematuria. History of Peripheral venous insufficiency on right, wears compression stockings. In ER: O2 came up to 94% on 2L by NC. WBC 10.7, Neutrophils 84%, CRP 39.1. D Dimer 4.04. VBG pH 7.39. AST/ALT increased since Saturday. CTA pending at time of report, though per my read and Dr Munoz's read looks like pulmonary embolism present with bilateral infiltrates. Dexamethasone 6 mg IV given in ER. Lior declined Remdesivir treatment at this time, he is 13 days out from symptoms so unlikely it would be beneficial. He is FULL CODE. Discussed admission with Lior and his , questions answered and they are agreeable for admission. Headache Pain Score (Numeric/FACES): 3 - Related Data Allergies/Adverse Reactions: Allergies Allergy/AdvReac Type Severity Reaction Status Date / Time No Known Allergies Allergy Verified 01/16/21 13:39 Home Medications: Home Meds Aspirin 81 mg DAILY 01/16/21 [History] Benzonatate [Tessalon Perle] 100 mg PO Q6H PRN #20 capsule 01/16/21 [Rx] Cetirizine [ZyrTEC] 10 mg DAILY 01/16/21 [History] Folic Acid 1 mg DAILY 01/16/21 [History] Losartan [Cozaar] 100 mg PO DAILY 01/16/21 [History] Methotrexate 2.5 mg PO WEEKLY 01/16/21 [History] Sildenafil [Revatio] 20 mg TID 01/16/21 [History] Simvastatin 80 mg BEDTIME 01/16/21 [History] cephALEXin [Cephalexin] 500 mg TID 01/16/21 [History] traZODone 100 mg DAILY 01/16/21 [History] Past Medical History Cardiovascular History: Reports: Hypertension, Other (See Below) Respiratory History: Reports: Sleep Apnea Musculoskeletal History: Reports: Osteoarthritis, RA, Other (See Below) Other Musculoskeletal History: Chondrocalcinosis knees Dermatologic History: Reports: Other (See Below) - Infectious Disease History Infectious Disease History: Reports: Novel Coronavirus - Past Surgical History HEENT Surgical History: Reports: Detached Retina GI Surgical History: Reports: Hernia, Abdominal (Umbilical), Hernia, Inguinal (2) Neurological Surgical History: Reports: Laminectomy (With fusion in the lumbar region) Musculoskeletal Surgical History: Reports: Other (See Below) (Knee arthrodesis) Social & Family History - Family History Family Medical History: No Pertinent Family History - Tobacco Use Tobacco Use Status *Q: Unknown Ever Used Tobacco (Nonsmoker) Second Hand Smoke Exposure: No - Caffeine Use Caffeine Use: Reports: Coffee, Tea - Recreational Drug Use Recreational Drug Use: No - Living Situation & Occupation Living situation: Reports: Occupation: Retired H&P Review of Systems - Review of Systems: Review Of Systems: Comprehensive ROS is negative, except as noted in HPI. Exam - Exam Exam: See Below - Vital Signs Vital Signs: Last Vital Signs Temp 99.9 F 01/21/21 13:35 Pulse 86 01/21/21 13:35 Resp 22 H 01/21/21 13:35 BP 140/68 01/21/21 13:35 Pulse Ox 91 L 01/21/21 13:35 Weight: 240 lb - Exam Quality Assessment: Supplemental Oxygen General: Alert, Oriented, Cooperative, Mild Distress HEENT: PERRLA, Conjunctiva Clear, EOMI, Hearing Intact, Mucosa Moist & [place], Normal Nasal Septum. No: Posterior Pharynx Clear (erythematous) Neck: Supple, Trachea Midline. No: Lymphadenopathy Lungs: Clear to Auscultation (BUL), Normal Respiratory Effort, Decreased Breath Sounds (bilateral), Rales (bilateral). No: Wheezing Cardiovascular: Regular Rate, Regular Rhythm GI/Abdominal Exam: Normal Bowel Sounds, Soft, Non-Tender, No Distention (Male) Exam: Deferred Rectal (Males) Exam: Deferred Extremities: Normal Capillary Refill, Pedal Edema (trace) Peripheral Pulses: 2+: Radial (L), Radial (R), Posterior Tibial (L), Posterior Tibial (R), Dorsalis Pedis (L), Dorsalis Pedis (R) Skin: Warm, Dry, Intact Neurological: Cranial Nerves Intact, Normal Speech, Normal Tone Psychiatric: Normal Mood - Patient Data Lab Results Last 24 hrs: Laboratory Results - last 24 hr 01/21/21 01/21/21 01/21/21 Range/Units 14:40 14:40 14:40 WBC 10.7 H (3.2-10.1) x10-3/uL RBC 4.20 (3.90-5.90) x10(6)uL Hgb 12.5 L (12.9-17.7) g/dL Hct 37.4 L (38.3-50.1) % MCV 89.1 (80.8-98.7) fL MCH 29.8 (27.0-33.3) pg MCHC 33.4 (28.7-35.3) g/dL RDW 13.3 (12.4-15.0) % Plt Count 369 (117-477) x10(3)uL MPV 6.7 (6.7-11.0) fL Add Manual Diff Yes Neutrophils % (Manual) 84 H (46-82) % Band Neutrophils % 1 (0-6) % Lymphocytes % (Manual) 5 L (13-37) % Monocytes % (Manual) 10 (4-12) % D-Dimer, Quantitative 4.04 H (0.0-0.59) mg/LFEU POC VBG pH (7.32-7.43) pH Units POC VBG pCO2 (41-51) mmHg POC VBG HCO3 (22-29) mmol/L VBG Base Excess (-2 - 3+) mmol/L O2 Delivery Device Oxygen Flow Rate LPM Sodium 137 (135-145) mmol/L Potassium 4.0 (3.5-5.3) mmol/L Chloride 102 (100-110) mmol/L Carbon Dioxide 28 (21-32) mmol/L BUN 13 (7-18) mg/dL Creatinine 0.9 (0.70-1.30) mg/dL Est Cr Clr Drug Dosing 86.31 mL/min Estimated GFR (MDRD) > 60 (>60) BUN/Creatinine Ratio 14.4 (9-20) Glucose 135 H (80-116) mg/dL Lactic Acid (0.4-2.0) mmol/L Calcium 8.3 L (8.6-10.2) mg/dL Magnesium 2.1 (1.8-2.5) mg/dL Total Bilirubin 2.0 H (0.1-1.3) mg/dL AST 85 H D (5-25) IU/L ALT 127 H D (12-36) U/L Alkaline Phosphatase 169 H (56-112) IU/L Troponin I (4.0-60.3) pg/mL C-Reactive Protein (0.5-0.9) mg/dL Total Protein 6.7 (6.0-8.0) g/dL Albumin 2.3 L (3.2-4.6) g/dL Globulin 4.4 g/dL Albumin/Globulin Ratio 0.5 01/21/21 01/21/21 01/21/21 Range/Units 14:40 14:40 14:40 WBC (3.2-10.1) x10-3/uL RBC (3.90-5.90) x10(6)uL Hgb (12.9-17.7) g/dL Hct (38.3-50.1) % MCV (80.8-98.7) fL MCH (27.0-33.3) pg MCHC (28.7-35.3) g/dL RDW (12.4-15.0) % Plt Count (117-477) x10(3)uL MPV (6.7-11.0) fL Add Manual Diff Neutrophils % (Manual) (46-82) % Band Neutrophils % (0-6) % Lymphocytes % (Manual) (13-37) % Monocytes % (Manual) (4-12) % D-Dimer, Quantitative (0.0-0.59) mg/LFEU POC VBG pH (7.32-7.43) pH Units POC VBG pCO2 (41-51) mmHg POC VBG HCO3 (22-29) mmol/L VBG Base Excess (-2 - 3+) mmol/L O2 Delivery Device Oxygen Flow Rate LPM Sodium (135-145) mmol/L Potassium (3.5-5.3) mmol/L Chloride (100-110) mmol/L Carbon Dioxide (21-32) mmol/L BUN (7-18) mg/dL Creatinine (0.70-1.30) mg/dL Est Cr Clr Drug Dosing mL/min Estimated GFR (MDRD) (>60) BUN/Creatinine Ratio (9-20) Glucose (80-116) mg/dL Lactic Acid 1.5 (0.4-2.0) mmol/L Calcium (8.6-10.2) mg/dL Magnesium (1.8-2.5) mg/dL Total Bilirubin (0.1-1.3) mg/dL AST (5-25) IU/L ALT (12-36) U/L Alkaline Phosphatase (56-112) IU/L Troponin I 7.1 (4.0-60.3) pg/mL C-Reactive Protein 39.1 H* (0.5-0.9) mg/dL Total Protein (6.0-8.0) g/dL Albumin (3.2-4.6) g/dL Globulin g/dL Albumin/Globulin Ratio 01/21/ Range/Units 15:12 WBC (3.2-10.1) x10-3/uL RBC (3.90-5.90) x10(6)uL Hgb (12.9-17.7) g/dL Hct (38.3-50.1) % MCV (80.8-98.7) fL MCH (27.0-33.3) pg MCHC (28.7-35.3) g/dL RDW (12.4-15.0) % Plt Count (117-477) x10(3)uL MPV (6.7-11.0) fL Add Manual Diff Neutrophils % (Manual) (46-82) % Band Neutrophils % (0-6) % Lymphocytes % (Manual) (13-37) % Monocytes % (Manual) (4-12) % D-Dimer, Quantitative (0.0-0.59) mg/LFEU POC VBG pH 7.49 H (7.32-7.43) pH Units POC VBG pCO2 38 L (41-51) mmHg POC VBG HCO3 29 (22-29) mmol/L VBG Base Excess 6 H (-2 - 3+) mmol/L O2 Delivery Device Nasal cannula Oxygen Flow Rate 2 LPM Sodium (135-145) mmol/L Potassium (3.5-5.3) mmol/L Chloride (100-110) mmol/L Carbon Dioxide (21-32) mmol/L BUN (7-18) mg/dL Creatinine (0.70-1.30) mg/dL Est Cr Clr Drug Dosing mL/min Estimated GFR (MDRD) (>60) BUN/Creatinine Ratio (9-20) Glucose (80-116) mg/dL Lactic Acid (0.4-2.0) mmol/L Calcium (8.6-10.2) mg/dL Magnesium (1.8-2.5) mg/dL Total Bilirubin (0.1-1.3) mg/dL AST (5-25) IU/L ALT (12-36) U/L Alkaline Phosphatase (56-112) IU/L Troponin I (4.0-60.3) pg/mL C-Reactive Protein (0.5-0.9) mg/dL Total Protein (6.0-8.0) g/dL Albumin (3.2-4.6) g/dL Globulin g/dL Albumin/Globulin Ratio Result Diagrams: 01/21/21 14:40 01/21/21 14:40 Sepsis Event Note - Evaluation Sepsis Screening Result: No Definite Risk - Focused Exam Vital Signs: Vital Signs Temp Pulse Resp BP Pulse Ox 01/21/21 13:35 99.9 F 86 22 H 140/68 91 L *Q Meaningful Use (ADM) - VTE Risk Assess *Q Each Risk Factor Represents 1 Point: Serious lung disease including pneumonia Total Score 1 Point Risk Factors: 1 Each Risk Factor Represents 2 Points: Age 60 - 74 Years Total Score 2 Point Risk Factors: 2 Each Risk Factor Represents 3 Points: None Total Score 3 Point Risk Factors: 0 Each Risk Factor Represents 5 Points: None Total Score 5 Point Risk Factors: 0 Venous Thromboembolism Risk Factor Score *Q: 3 - Problem List (1) Pneumonia due to COVID-19 virus SNOMED Code(s): 623681526832093006 ICD Code: U07.1 - COVID-19; J12.82 - PNEUMONIA DUE TO CORONAVIRUS DISEASE 2018 Status: Acute Current Visit: Yes (2) Hypoxia SNOMED Code(s): 240772575 ICD Code: R09.02 - HYPOXEMIA Status: Acute Current Visit: Yes (3) Elevated d-dimer SNOMED Code(s): 175462572 ICD Code: R79.89 - OTHER SPECIFIED ABNORMAL FINDINGS OF BLOOD CHEMISTRY Sta tus: Acute Current Visit: Yes (4) Dehydration SNOMED Code(s): 86171224 ICD Code: E86.0 - DEHYDRATION Status: Acute Current Visit: No (5) Hypertension SNOMED Code(s): 08016659 ICD Code: I10 - ESSENTIAL (PRIMARY) HYPERTENSION Status: Chronic Current Visit: Yes (6) Hyperlipidemia SNOMED Code(s): 93126968 ICD Code: E78.5 - HYPERLIPIDEMIA, UNSPECIFIED Status: Chronic Current Visit: Yes (7) Seronegative rheumatoid arthritis of multiple sites SNOMED Code(s): 585177415864546 ICD Code: M06.09 - RHEUMATOID ARTHRITIS W/O RHEUMATOID FACTOR, MULTIPLE SITES Status: Chronic Current Visit: Yes (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 SNOMED Code(s): 550011306 ICD Code: H59.819 - CHORIORETINAL SCARS AFTER SURGERY FOR DETACHMENT, UNSP EYE Status: Chronic Current Visit: Yes (9) Nuclear cataract SNOMED Code(s): 03494281 ICD Code: VAB4186 - Status: Chronic Current Visit: Yes (10) History of retinal detachment SNOMED Code(s): 921557824 ICD Code: Z86.69 - PERSONAL HISTORY OF DIS OF THE NERVOUS SYS AND SENSE ORGANS Status: Chronic Current Visit: Yes (11) History of total bilateral knee replacement SNOMED Code(s): 7121524550906, 945891223, 5777292036336, 76067841643639 ICD Code: Z96.653 - PRESENCE OF ARTIFICIAL KNEE JOINT, BILATERAL Status: Chronic Current Visit: Yes Problem List Initiated/Reviewed/Updated: Yes Orders Last 24hrs: Active Orders 24 hr Category Date Time Status Admission Status [Patient Status] [ADT] Routine ADT 01/21/21 17:06 Active Cardiac Monitoring [RC] .As Directed Care 01/21/21 17:06 Active Communication Order [RC] Q1HWA Care 01/21/21 18:04 Ordered EKG Documentation Completion [RC] ASDIRECTED Care 01/21/21 14:15 Active Nurse Communication: Isolation [RC] ASDIRECTED Care 01/21/21 17:59 Ordered Overnight Pulse Oximetry [RC] Click to Edit Care 01/21/21 18:03 Ordered Oxygen Therapy [RC] PRN Care 01/21/21 17:59 Ordered RT Aerosol Therapy [RC] ASDIRECTED Care 01/21/21 18:09 Ordered RT Incentive Spirometry [RC] ASDIRECTED Care 01/21/21 17:59 Ordered Up ad Viviana [RC] ASDIRECTED Care 01/21/21 17:59 Ordered VTE/DVT Education [RC] Per Unit Routine Care 01/21/21 17:59 Ordered Vital Signs [RC] Q4H Care 01/21/21 17:59 Ordered Regular Diet [DIET] Diet 01/21/21 Dinner Ordered Ang Chest [CT] Stat Exams 01/21/21 15:34 Taken CBC WITH AUTO DIFF [HEME] Routine Lab 01/22/21 06:00 Ordered COMPREHENSIVE METABOLIC PN,CMP [CHEM] Routine Lab 01/22/21 06:00 Ordered CULTURE BLOOD [BC] Urgent Lab 01/21/21 14:40 Received CULTURE BLOOD [BC] Urgent Lab 01/21/21 14:50 Received CULTURE SPUTUM + SMEAR [RM] Stat Lab 01/21/21 17:59 Ordered INFLUENZA A+B AG SCREEN [RM] Routine Lab 01/21/21 17:59 Ordered Acetaminophen [TylenoL] Med 01/21/21 17:59 Ordered 650 mg PO Q4H PRN Azithromycin [Zithromax] 500 mg Med 01/21/21 18:15 Ordered Sodium Chloride 0.9% [Normal Saline (AdvBag)] 250 ml IV Q24H Benzonatate [Tessalon Perles] Med 01/21/21 18:09 Ordered 100 mg PO Q6H PRN Budesonide [Pulmicort] Med 01/21/21 21:00 Ordered 0.5 mg NEB BIDRT Cetirizine [ZyrTEC] Med 01/22/21 09:00 Ordered 10 mg PO DAILY Cholecalciferol (Vitamin D3) [Vitamin D3] Med 01/22/21 09:00 Ordered 125 mcg PO DAILY Folic Acid Med 01/22/21 09:00 Ordered 1 mg PO DAILY Losartan [Cozaar] Med 01/22/21 09:00 Ordered 100 mg PO DAILY Ondansetron [Zofran ODT] Med 01/21/21 17:59 Ordered 4 mg PO Q4H PRN Sildenafil [Revatio] Med 01/21/21 21:00 Ordered 20 mg PO TID Simvastatin [Simvastatin] Med 01/21/21 21:00 Ordered 80 mg PO BEDTIME Sodium Chloride 0.9% [Normal Saline] 1,000 ml Med 01/21/21 14:45 Active IV ASDIRECTED Sodium Chloride 0.9% [Saline Flush] Med 01/21/21 14:14 Active 10 ml FLUSH ASDIRECTED PRN Zinc Sulfate [Zincate] Med 01/22/21 09:00 Ordered 220 mg PO DAILY cefTRIAXone [Rocephin] Med 01/21/21 18:15 Ordered 1 gm IVPUSH Q24H dexAMETHasone [Decadron] Med 01/22/21 09:00 Ordered 6 mg IVPUSH DAILY guaiFENesin [Mucinex] Med 01/21/21 18:15 Ordered 600 mg PO BID traZODone Med 01/21/21 21:00 Ordered 100 mg PO BEDTIME Antiembolic Hose [OM.PC] Per Unit Routine Oth 01/21/21 18:00 Ordered Blood Culture x2 Reflex Set [OM.PC] Urgent Oth 01/21/21 14:15 Ordered Isolation [COMM] Routine Oth 01/21/21 18:02 Ordered Isolation [COMM] Stat Oth 01/21/21 17:59 Ordered Peripheral IV Insertion Adult [OM.PC] Routine Oth 01/21/21 14:14 Ordered Pulse Oximetry Continuous Monitoring [OM.PC] Routine Oth 01/21/21 18:03 Ordered Resuscitation Status Routine Resus Stat 01/21/21 17:59 Ordered EKG 12 Lead [EK] Routine Ther 01/21/21 14:14 Ordered Medication Orders Acetaminophen (Acetaminophen 325 Mg Tab) 650 mg PO Q4H PRN PRN Reason: Pain (Mild 1-3)/fever Benzonatate (Benzonatate 100 Mg Cap) 100 mg PO Q6H PRN PRN Reason: Cough Budesonide (Budesonide 0.5 Mg/2 Ml Neb Susp) 0.5 mg NEB BIDRT [facility] Ceftriaxone Sodium (Ceftriaxone 1 Gm Vial) 1 gm IVPUSH Q24H [facility] Cetirizine HCl (Cetirizine 10 Mg Tab) 10 mg PO DAILY [facility] Cholecalciferol (Cholecalciferol (Vitamin D3) 25 Mcg Tab) 125 mcg PO DAILY [facility] Dexamethasone (Dexamethasone 4 Mg/Ml Sdv) 6 mg IVPUSH DAILY [facility] Stop: 01/30/21 09:01 Folic Acid (Folic Acid 1 Mg Tab) 1 mg PO DAILY [facility] Guaifenesin (Guaifenesin 600 Mg Tab.Er) 600 mg PO BID [facility] Sodium Chloride (Normal Saline) 1,000 mls @ 150 mls/hr IV ASDIRECTED [facility] Azithromycin 500 mg/ Sodium (Chloride) 250 mls @ 250 mls/hr IV Q24H [facility] Losartan Potassium (Losartan 100 Mg Tab) 100 mg PO DAILY [facility] Non-Formulary Medication (Simvastatin [Simvastatin]) 80 mg PO BEDTIME [facility] Ondansetron HCl (Ondansetron 4 Mg Tab.Dis) 4 mg PO Q4H PRN PRN Reason: nausea, able to take PO Sildenafil Citrate (Sildenafil 20 Mg Tab) 20 mg PO TID [facility] Sodium Chloride (Sodium Chloride 0.9% 10 Ml Syringe) 10 ml FLUSH ASDIRECTED PRN PRN Reason: Keep Vein Open Trazodone HCl (Trazodone 100 Mg Tab) 100 mg PO BEDTIME [facility] Zinc Sulfate (Zinc Sulfate 220 Mg Cap) 220 mg PO DAILY [facility] Assessment/Plan Comment:: 1. Admit to inpatient status for Covid pneumonia with secondary bacterial pneumonia, dehydration, hypoxia. 2. Pneumonia, viral & bacterial: Repeat CBC & CMP tomorrow. Dexamethasone 6 mg IV daily, first dose in ER. Will not do Remdesivir since he is greater than 10 days since start of symptoms(pt also declined). Will check influenza as he could have coinfection and have had Influenza B cases in the community. Mucinex 600 mg bid, Flutter valve & incentive spirometry q1hwa, will try to get sputum culture. Blood cultures pending. Continue Zinc 220 mg daily and Vitamin D3 5000 units daily. Budesonide neb bid. Isolation: droplet. O2 by mn, continuous pulse oximetry and telemetry. 3. Elevated D Dimer: CTA pending but per my read pulmonary embolism likely. Dr Munoz who will be covering for the night will be watching for report and if positive will start Eliquis 10 mg bid or Xarelto. 4. Dehydration: NS at 150 ml/hr in ER, will slow down to 100 ml/hr. 5. Diet: Regular, room service. 6. Activity: as tolerated in room. 7. DVT prophylaxis: NATALIA GARVIN, pending CTA report on pharmacological treatment. 8. CODE STATUS: FULL. 9. Discharge planning: anticipate 48-72 hrs of treatment, plan to discharge back to home. Continue home medication except Methotrexate. Adjust treatments as necessary. - Mortality Measure Prognosis:: Good
[2021-01-21] MEDS: Sodium Chloride 0.9% 1,000 ML IV SCH (19:20)
[2021-01-21] MEDS: cefTRIAXone 1 GM Vial IVPUSH SCH (19:29)
[2021-01-21] MEDS: Azithromycin 500 MG in Sodium Chloride 0.9% 250 ML IV SCH (19:30)
[2021-01-21] MEDS: Enoxaparin 40 MG/0.4 ML Syringe SUBCUT SCH (19:34)
[2021-01-21] MEDS: Sildenafil 20 MG Tab PO SCH ×2 (20:44→21:30)
[2021-01-21] MEDS: Budesonide 0.5 MG/2 ML Neb Susp NEB SCH (20:44)
[2021-01-21] MEDS: Simvastatin 40 MG Tab PO SCH (20:45)
[2021-01-21] MEDS: traZODone 100 MG Tab PO SCH (20:45)
[2021-01-21] MEDS: Acetaminophen 325 MG Tab PO PRN (20:47)
[2021-01-21] MEDS: guaiFENesin 600 MG Tab.ER PO SCH ×2 (21:00→22:22)
[2021-01-22] MEDS: Sodium Chloride 0.9% 1,000 ML IV SCH (05:57)
[2021-01-22] MEDS: Budesonide 0.5 MG/2 ML Neb Susp NEB SCH ×2 (07:07→21:09)
[2021-01-22] MEDS: Dexamethasone 4 MG/ML SDV IVPUSH SCH (09:09)
[2021-01-22] MEDS: Enoxaparin 40 MG/0.4 ML Syringe SUBCUT SCH (09:10)
[2021-01-22] MEDS: Folic Acid 1 MG Tab PO SCH (09:10)
[2021-01-22] MEDS: guaiFENesin 600 MG Tab.ER PO SCH ×2 (09:10→21:09)
[2021-01-22] MEDS: Cholecalciferol (Vitamin D3) 25 MCG Tab PO SCH (09:11)
[2021-01-22] MEDS: Zinc Sulfate 220 MG Cap PO SCH (09:11)
[2021-01-22] MEDS: Cetirizine 10 MG Tab PO SCH ×2 (09:12→09:24)
[2021-01-22] MEDS: Losartan 100 MG Tab PO SCH (09:12)
--- NOTE | 2021-01-22 14:08 | PCM.PN ---
- General Info Date of Service: 01/22/21 Subjective Update: Lior desaturated down to 64% overnight, had taken oxygen off when got up to go to bathroom, was turned up to 4L. This morning he is at 98% on 4L, weaned down to 3L, maintained at 93%. No fevers overnight. PE was ruled out. Influenza was negative. He states he is feeling a little better. He took out his second IV, was bothering him. No chest pain. IS & Flutter valve helping. He stated that he doesn't take Sildenafil anymore, not since Apr. He is not drinking very much but urinating well. He was able to give sputum sample last night. BC pending. - Patient Data Vitals - Most Recent: Last Vital Signs Temp 97.1 F 01/22/21 12:00 Pulse 57 L 01/22/21 12:00 Resp 20 01/22/21 12:00 BP 120/72 01/22/21 12:00 Pulse Ox 95 01/22/21 12:00 Weight - Most Recent: 241 lb I&O - Last 24 Hours: Intake & Output 01/21/21 01/22/21 01/22/21 22:59 06:59 14:59 Intake Total 500 785 Balance 500 785 Lab Results Last 24 Hours: Laboratory Results - last 24 hr 01/21/21 01/21/21 01/21/21 Range/Units 14:40 14:40 14:40 WBC 10.7 H (3.2-10.1) x10-3/uL RBC 4.20 (3.90-5.90) x10(6)uL Hgb 12.5 L (12.9-17.7) g/dL Hct 37.4 L (38.3-50.1) % MCV 89.1 (80.8-98.7) fL MCH 29.8 (27.0-33.3) pg MCHC 33.4 (28.7-35.3) g/dL RDW 13.3 (12.4-15.0) % Plt Count 369 (117-477) x10(3)uL MPV 6.7 (6.7-11.0) fL Neut % (Auto) (40.3-71.8) % Lymph % (Auto) (15.8-45.3) % [place] % (Auto) (5.5-15.2) % Eos % (Auto) (0.1-6.8) % Baso % (Auto) (0.3-3.8) % Neut # (Auto) (1.7-6.9) x10-3/uL Lymph # (Auto) (0.5-4.5) x10-3/uL [place] # (Auto) (0.0-1.2) x10-3/uL Eos # (Auto) (0.0-0.6) x10-3/uL Baso # (Auto) (0.0-0.3) x10-3/uL Add Manual Diff Yes Neutrophils % (Manual) 84 H (46-82) % Band Neutrophils % 1 (0-6) % Lymphocytes % (Manual) 5 L (13-37) % Monocytes % (Manual) 10 (4-12) % D-Dimer, Quantitative 4.04 H (0.0-0.59) mg/LFEU POC VBG pH (7.32-7.43) pH Units POC VBG pCO2 (41-51) mmHg POC VBG HCO3 (22-29) mmol/L VBG Base Excess (-2 - 3+) mmol/L O2 Delivery Device Oxygen Flow Rate LPM Sodium 137 (135-145) mmol/L Potassium 4.0 (3.5-5.3) mmol/L Chloride 102 (100-110) mmol/L Carbon Dioxide 28 (21-32) mmol/L BUN 13 (7-18) mg/dL Creatinine 0.9 (0.70-1.30) mg/dL Est Cr Clr Drug Dosing 86.31 mL/min Estimated GFR (MDRD) > 60 (>60) BUN/Creatinine Ratio 14.4 (9-20) Glucose 135 H (80-116) mg/dL Lactic Acid (0.4-2.0) mmol/L Calcium 8.3 L (8.6-10.2) mg/dL Magnesium 2.1 (1.8-2.5) mg/dL Total Bilirubin 2.0 H (0.1-1.3) mg/dL AST 85 H D (5-25) IU/L ALT 127 H D (12-36) U/L Alkaline Phosphatase 169 H (56-112) IU/L Troponin I (4.0-60.3) pg/mL C-Reactive Protein (0.5-0.9) mg/dL Total Protein 6.7 (6.0-8.0) g/dL Albumin 2.3 L (3.2-4.6) g/dL Globulin 4.4 g/dL Albumin/Globulin Ratio 0.5 01/21/21 01/21/21 01/21/21 Range/Units 14:40 14:40 14:40 WBC (3.2-10.1) x10-3/uL RBC (3.90-5.90) x10(6)uL Hgb (12.9-17.7) g/dL Hct (38.3-50.1) % MCV (80.8-98.7) fL MCH (27.0-33.3) pg MCHC (28.7-35.3) g/dL RDW (12.4-15.0) % Plt Count (117-477) x10(3)uL MPV (6.7-11.0) fL Neut % (Auto) (40.3-71.8) % Lymph % (Auto) (15.8-45.3) % [place] % (Auto) (5.5-15.2) % Eos % (Auto) (0.1-6.8) % Baso % (Auto) (0.3-3.8) % Neut # (Auto) (1.7-6.9) x10-3/uL Lymph # (Auto) (0.5-4.5) x10-3/uL [place] # (Auto) (0.0-1.2) x10-3/uL Eos # (Auto) (0.0-0.6) x10-3/uL Baso # (Auto) (0.0-0.3) x10-3/uL Add Manual Diff Neutrophils % (Manual) (46-82) % Band Neutrophils % (0-6) % Lymphocytes % (Manual) (13-37) % Monocytes % (Manual) (4-12) % D-Dimer, Quantitative (0.0-0.59) mg/LFEU POC VBG pH (7.32-7.43) pH Units POC VBG pCO2 (41-51) mmHg POC VBG HCO3 (22-29) mmol/L VBG Base Excess (-2 - 3+) mmol/L O2 Delivery Device Oxygen Flow Rate LPM Sodium (135-145) mmol/L Potassium (3.5-5.3) mmol/L Chloride (100-110) mmol/L Carbon Dioxide (21-32) mmol/L BUN (7-18) mg/dL Creatinine (0.70-1.30) mg/dL Est Cr Clr Drug Dosing mL/min Estimated GFR (MDRD) (>60) BUN/Creatinine Ratio (9-20) Glucose (80-116) mg/dL Lactic Acid 1.5 (0.4-2.0) mmol/L Calcium (8.6-10.2) mg/dL Magnesium (1.8-2.5) mg/dL Total Bilirubin (0.1-1.3) mg/dL AST (5-25) IU/L ALT (12-36) U/L Alkaline Phosphatase (56-112) IU/L Troponin I 7.1 (4.0-60.3) pg/mL C-Reactive Protein 39.1 H* (0.5-0.9) mg/dL Total Protein (6.0-8.0) g/dL Albumin (3.2-4.6) g/dL Globulin g/dL Albumin/Globulin Ratio 01/21/21 01/22/21 01/22/21 Range/Units 15:12 06:30 06:30 WBC 9.4 (3.2-10.1) x10-3/uL RBC 3.91 (3.90-5.90) x10(6)uL Hgb 11.9 L (12.9-17.7) g/dL Hct 35.1 L (38.3-50.1) % MCV 89.6 (80.8-98.7) fL MCH 30.4 (27.0-33.3) pg MCHC 33.9 (28.7-35.3) g/dL RDW 13.3 (12.4-15.0) % Plt Count 337 (117-477) x10(3)uL MPV 6.6 L (6.7-11.0) fL Neut % (Auto) 89.5 H (40.3-71.8) % Lymph % (Auto) 4.8 L (15.8-45.3) % [place] % (Auto) 5.3 L (5.5-15.2) % Eos % (Auto) 0.0 L (0.1-6.8) % Baso % (Auto) 0.4 (0.3-3.8) % Neut # (Auto) 8.4 H (1.7-6.9) x10-3/uL Lymph # (Auto) 0.4 L (0.5-4.5) x10-3/uL [place] # (Auto) 0.5 (0.0-1.2) x10-3/uL Eos # (Auto) 0.0 (0.0-0.6) x10-3/uL Baso # (Auto) 0.0 (0.0-0.3) x10-3/uL Add Manual Diff Neutrophils % (Manual) (46-82) % Band Neutrophils % (0-6) % Lymphocytes % (Manual) (13-37) % Monocytes % (Manual) (4-12) % D-Dimer, Quantitative (0.0-0.59) mg/LFEU POC VBG pH 7.49 H (7.32-7.43) pH Units POC VBG pCO2 38 L (41-51) mmHg POC VBG HCO3 29 (22-29) mmol/L VBG Base Excess 6 H (-2 - 3+) mmol/L O2 Delivery Device Nasal cannula Oxygen Flow Rate 2 LPM Sodium 142 (135-145) mmol/L Potassium 3.8 (3.5-5.3) mmol/L Chloride 107 D (100-110) mmol/L Carbon Dioxide 28 (21-32) mmol/L BUN 16 (7-18) mg/dL Creatinine 0.9 (0.70-1.30) mg/dL Est Cr Clr Drug Dosing 111.16 mL/min Estimated GFR (MDRD) > 60 (>60) BUN/Creatinine Ratio 17.8 (9-20) Glucose 156 H (80-116) mg/dL Lactic Acid (0.4-2.0) mmol/L Calcium 8.0 L (8.6-10.2) mg/dL Magnesium (1.8-2.5) mg/dL Total Bilirubin 0.9 (0.1-1.3) mg/dL AST 51 H D (5-25) IU/L ALT 93 H D (12-36) U/L Alkaline Phosphatase 135 H (56-112) IU/L Troponin I (4.0-60.3) pg/mL C-Reactive Protein (0.5-0.9) mg/dL Total Protein 6.1 (6.0-8.0) g/dL Albumin 2.0 L (3.2-4.6) g/dL Globulin 4.1 g/dL Albumin/Globulin Ratio 0.5 Florencio Results Last 24 Hours: Microbiology 01/21/21 17:01 Influenza Type A Antigen Screen - Final Nasopharyngeal Swab NEGATIVE INFLUENZA A VIRUS AG REFERENCE RANGE: NEGATIVE Influenza Type B Antigen Screen - Final NEGATIVE INFLUENZA B VIRUS AG REFERENCE RANGE: NEGATIVE Med Orders - Current: Current Medications Acetaminophen (Acetaminophen 325 Mg Tab) 650 mg PO Q4H PRN PRN Reason: Pain (Mild 1-3)/fever Last Admin: 01/21/21 20:47 Dose: 650 mg Documented by: Benzonatate (Benzonatate 100 Mg Cap) 100 mg PO Q6H PRN PRN Reason: Cough Budesonide (Budesonide 0.5 Mg/2 Ml Neb Susp) 0.5 mg NEB BIDRT [facility] Last Admin: 01/22/21 07:07 Dose: 0.5 mg Documented by: Ceftriaxone Sodium (Ceftriaxone 1 Gm Vial) 1 gm IVPUSH Q24H [facility] [place] Last Admin: 01/21/21 19:29 Dose: 1 gm Documented by: Cetirizine HCl (Cetirizine 10 Mg Tab) 10 mg PO DAILY [facility] [place] Last Admin: 01/22/21 09:24 Dose: Not Given Documented by: Cholecalciferol (Cholecalciferol (Vitamin D3) 25 Mcg Tab) 125 mcg PO DAILY [facility] [place] Last Admin: 01/22/21 09:11 Dose: 125 mcg Documented by: Dexamethasone (Dexamethasone 4 Mg/Ml Sdv) 6 mg IVPUSH DAILY [facility] [place] Stop: 01/30/21 09:01 Last Admin: 01/22/21 09:09 Dose: 6 mg Documented by: Enoxaparin Sodium (Enoxaparin 40 Mg/0.4 Ml Syringe) 40 mg SUBCUT DAILY [facility] [place] Last Admin: 01/22/21 09:10 Dose: 40 mg Documented by: Folic Acid (Folic Acid 1 Mg Tab) 1 mg PO DAILY [facility] [place] Last Admin: 01/22/21 09:10 Dose: 1 mg Documented by: Guaifenesin (Guaifenesin 600 Mg Tab.Er) 600 mg PO BID [facility] [place] Last Admin: 01/22/21 09:10 Dose: 600 mg Documented by: Sodium Chloride (Normal Saline) 1,000 mls @ 100 mls/hr IV ASDIRECTED [facility] [place] Last Admin: 01/22/21 05:57 Dose: 100 mls/hr Documented by: Azithromycin 500 mg/ Sodium (Chloride) 250 mls @ 250 mls/hr IV Q24H [facility] [place] Last Admin: 01/21/21 19:30 Dose: 250 mls/hr Documented by: Losartan Potassium (Losartan 100 Mg Tab) 100 mg PO DAILY [facility] [place] Last Admin: 01/22/21 09:12 Dose: Not Given Documented by: Ondansetron HCl (Ondansetron 4 Mg Tab.Dis) 4 mg PO Q4H PRN PRN Reason: nausea, able to take PO Simvastatin (Simvastatin 40 Mg Tab) 80 mg PO BEDTIME [facility] [place] Last Admin: 01/21/21 20:45 Dose: 80 mg Documented by: Sodium Chloride (Sodium Chloride 0.9% 10 Ml Syringe) 10 ml FLUSH ASDIRECTED PRN PRN Reason: Keep Vein Open Trazodone HCl (Trazodone 100 Mg Tab) 100 mg PO BEDTIME [facility] [place] Last Admin: 01/21/21 20:45 Dose: 100 mg Documented by: Zinc Sulfate (Zinc Sulfate 220 Mg Cap) 220 mg PO DAILY [facility] [place] Last Admin: 01/22/21 09:11 Dose: 220 mg Documented by: Discontinued Medications Dexamethasone (Dexamethasone 4 Mg/Ml Sdv) 6 mg IVPUSH ONETIME ONE Stop: 01/21/21 15:08 Last Admin: 01/21/21 15:44 Dose: 6 mg Documented by: Sodium Chloride (Normal Saline) 500 mls @ 999 mls/hr IV .BOLUS ONE Stop: 01/21/21 15:03 Last Admin: 01/21/21 14:33 Dose: 999 mls/hr Documented by: Iopamidol (Iopamidol 755 Mg/Ml 100 Ml Bottle) 85 ml IV . DIRECTED ONE Stop: 01/21/21 15:53 Last Admin: 01/21/21 16:16 Dose: 85 ml Documented by: Sildenafil Citrate (Sildenafil 20 Mg Tab) 20 mg PO TID [facility] Last Admin: 01/21/21 21:30 Dose: Not Given Documented by: - Exam Quality Assessment: Supplemental Oxygen General: Alert, Oriented, Cooperative, No Acute Distress Lungs: Clear to Auscultation, Normal Respiratory Effort, Decreased Breath Sounds (improved air entry bibasilar), Rales (bibasilar). No: Wheezing Cardiovascular: Regular Rate, Regular Rhythm GI/Abdominal Exam: Normal Bowel Sounds, Soft, Non-Tender, No Distention Extremities: No Pedal Edema, Normal Capillary Refill Peripheral Pulses: 2+: Radial (L), Radial (R), Dorsalis Pedis (L), Dorsalis Pedis (R) Skin: Warm, Dry, Intact - Patient Data Lab Results Last 24 hrs: Laboratory Results - last 24 hr 01/21/21 01/21/21 01/21/21 Range/Units 14:40 14:40 14:40 WBC 10.7 H (3.2-10.1) x10-3/uL RBC 4.20 (3.90-5.90) x10(6)uL Hgb 12.5 L (12.9-17.7) g/dL Hct 37.4 L (38.3-50.1) % MCV 89.1 (80.8-98.7) fL MCH 29.8 (27.0-33.3) pg MCHC 33.4 (28.7-35.3) g/dL RDW 13.3 (12.4-15.0) % Plt Count 369 (117-477) x10(3)uL MPV 6.7 (6.7-11.0) fL Neut % (Auto) (40.3-71.8) % Lymph % (Auto) (15.8-45.3) % [place] % (Auto) (5.5-15.2) % Eos % (Auto) (0.1-6.8) % Baso % (Auto) (0.3-3.8) % Neut # (Auto) (1.7-6.9) x10-3/uL Lymph # (Auto) (0.5-4.5) x10-3/uL [place] # (Auto) (0.0-1.2) x10-3/uL Eos # (Auto) (0.0-0.6) x10-3/uL Baso # (Auto) (0.0-0.3) x10-3/uL Add Manual Diff Yes Neutrophils % (Manual) 84 H (46-82) % Band Neutrophils % 1 (0-6) % Lymphocytes % (Manual) 5 L (13-37) % Monocytes % (Manual) 10 (4-12) % D-Dimer, Quantitative 4.04 H (0.0-0.59) mg/LFEU POC VBG pH (7.32-7.43) pH Units POC VBG pCO2 (41-51) mmHg POC VBG HCO3 (22-29) mmol/L VBG Base Excess (-2 - 3+) mmol/L O2 Delivery Device Oxygen Flow Rate LPM Sodium 137 (135-145) mmol/L Potassium 4.0 (3.5-5.3) mmol/L Chloride 102 (100-110) mmol/L Carbon Dioxide 28 (21-32) mmol/L BUN 13 (7-18) mg/dL Creatinine 0.9 (0.70-1.30) mg/dL Est Cr Clr Drug Dosing 86.31 mL/min Estimated GFR (MDRD) > 60 (>60) BUN/Creatinine Ratio 14.4 (9-20) Glucose 135 H (80-116) mg/dL Lactic Acid (0.4-2.0) mmol/L Calcium 8.3 L (8.6-10.2) mg/dL Magnesium 2.1 (1.8-2.5) mg/dL Total Bilirubin 2.0 H (0.1-1.3) mg/dL AST 85 H D (5-25) IU/L ALT 127 H D (12-36) U/L Alkaline Phosphatase 169 H (56-112) IU/L Troponin I (4.0-60.3) pg/mL C-Reactive Protein (0.5-0.9) mg/dL Total Protein 6.7 (6.0-8.0) g/dL Albumin 2.3 L (3.2-4.6) g/dL Globulin 4.4 g/dL Albumin/Globulin Ratio 0.5 01/21/21 01/21/21 01/21/21 Range/Units 14:40 14:40 14:40 WBC (3.2-10.1) x10-3/uL RBC (3.90-5.90) x10(6)uL Hgb (12.9-17.7) g/dL Hct (38.3-50.1) % MCV (80.8-98.7) fL MCH (27.0-33.3) pg MCHC (28.7-35.3) g/dL RDW (12.4-15.0) % Plt Count (117-477) x10(3)uL MPV (6.7-11.0) fL Neut % (Auto) (40.3-71.8) % Lymph % (Auto) (15.8-45.3) % [place] % (Auto) (5.5-15.2) % Eos % (Auto) (0.1-6.8) % Baso % (Auto) (0.3-3.8) % Neut # (Auto) (1.7-6.9) x10-3/uL Lymph # (Auto) (0.5-4.5) x10-3/uL [place] # (Auto) (0.0-1.2) x10-3/uL Eos # (Auto) (0.0-0.6) x10-3/uL Baso # (Auto) (0.0-0.3) x10-3/uL Add Manual Diff Neutrophils % (Manual) (46-82) % Band Neutrophils % (0-6) % Lymphocytes % (Manual) (13-37) % Monocytes % (Manual) (4-12) % D-Dimer, Quantitative (0.0-0.59) mg/LFEU POC VBG pH (7.32-7.43) pH Units POC VBG pCO2 (41-51) mmHg POC VBG HCO3 (22-29) mmol/L VBG Base Excess (-2 - 3+) mmol/L O2 Delivery Device Oxygen Flow Rate LPM Sodium (135-145) mmol/L Potassium (3.5-5.3) mmol/L Chloride (100-110) mmol/L Carbon Dioxide (21-32) mmol/L BUN (7-18) mg/dL Creatinine (0.70-1.30) mg/dL Est Cr Clr Drug Dosing mL/min Estimated GFR (MDRD) (>60) BUN/Creatinine Ratio (9-20) Glucose (80-116) mg/dL Lactic Acid 1.5 (0.4-2.0) mmol/L Calcium (8.6-10.2) mg/dL Magnesium (1.8-2.5) mg/dL Total Bilirubin (0.1-1.3) mg/dL AST (5-25) IU/L ALT (12-36) U/L Alkaline Phosphatase (56-112) IU/L Troponin I 7.1 (4.0-60.3) pg/mL C-Reactive Protein 39.1 H* (0.5-0.9) mg/dL Total Protein (6.0-8.0) g/dL Albumin (3.2-4.6) g/dL Globulin g/dL Albumin/Globulin Ratio 01/21/21 01/22/21 01/22/21 Range/Units 15:12 06:30 06:30 WBC 9.4 (3.2-10.1) x10-3/uL RBC 3.91 (3.90-5.90) x10(6)uL Hgb 11.9 L (12.9-17.7) g/dL Hct 35.1 L (38.3-50.1) % MCV 89.6 (80.8-98.7) fL MCH 30.4 (27.0-33.3) pg MCHC 33.9 (28.7-35.3) g/dL RDW 13.3 (12.4-15.0) % Plt Count 337 (117-477) x10(3)uL MPV 6.6 L (6.7-11.0) fL Neut % (Auto) 89.5 H (40.3-71.8) % Lymph % (Auto) 4.8 L (15.8-45.3) % [place] % (Auto) 5.3 L (5.5-15.2) % Eos % (Auto) 0.0 L (0.1-6.8) % Baso % (Auto) 0.4 (0.3-3.8) % Neut # (Auto) 8.4 H (1.7-6.9) x10-3/uL Lymph # (Auto) 0.4 L (0.5-4.5) x10-3/uL [place] # (Auto) 0.5 (0.0-1.2) x10-3/uL Eos # (Auto) 0.0 (0.0-0.6) x10-3/uL Baso # (Auto) 0.0 (0.0-0.3) x10-3/uL Add Manual Diff Neutrophils % (Manual) (46-82) % Band Neutrophils % (0-6) % Lymphocytes % (Manual) (13-37) % Monocytes % (Manual) (4-12) % D-Dimer, Quantitative (0.0-0.59) mg/LFEU POC VBG pH 7.49 H (7.32-7.43) pH Units POC VBG pCO2 38 L (41-51) mmHg POC VBG HCO3 29 (22-29) mmol/L VBG Base Excess 6 H (-2 - 3+) mmol/L O2 Delivery Device Nasal cannula Oxygen Flow Rate 2 LPM Sodium 142 (135-145) mmol/L Potassium 3.8 (3.5-5.3) mmol/L Chloride 107 D (100-110) mmol/L Carbon Dioxide 28 (21-32) mmol/L BUN 16 (7-18) mg/dL Creatinine 0.9 (0.70-1.30) mg/dL Est Cr Clr Drug Dosing 111.16 mL/min Estimated GFR (MDRD) > 60 (>60) BUN/Creatinine Ratio 17.8 (9-20) Glucose 156 H (80-116) mg/dL Lactic Acid (0.4-2.0) mmol/L Calcium 8.0 L (8.6-10.2) mg/dL Magnesium (1.8-2.5) mg/dL Total Bilirubin 0.9 (0.1-1.3) mg/dL AST 51 H D (5-25) IU/L ALT 93 H D (12-36) U/L Alkaline Phosphatase 135 H (56-112) IU/L Troponin I (4.0-60.3) pg/mL C-Reactive Protein (0.5-0.9) mg/dL Total Protein 6.1 (6.0-8.0) g/dL Albumin 2.0 L (3.2-4.6) g/dL Globulin 4.1 g/dL Albumin/Globulin Ratio 0.5 Result Diagrams: 01/22/21 06:30 01/22/21 06:30 Florencio Results Last 24 hrs: Microbiology 01/21/21 17:01 Influenza Type A Antigen Screen - Final Nasopharyngeal Swab NEGATIVE INFLUENZA A VIRUS AG REFERENCE RANGE: NEGATIVE Influenza Type B Antigen Screen - Final NEGATIVE INFLUENZA B VIRUS AG REFERENCE RANGE: NEGATIVE Sepsis Event Note - Evaluation Sepsis Screening Result: No Definite Risk - Focused Exam Vital Signs: Vital Signs Temp Pulse Resp BP BP Pulse Ox 01/22/21 12:00 97.1 F 57 L 20 120/72 95 01/22/21 09:12 109/65 01/22/21 08:00 97.5 F 77 20 109/65 95 01/22/21 07:15 64 01/22/21 05:00 96.8 F L 56 L 18 136/77 98 - Problem List & Annotations (1) Pneumonia due to COVID-19 virus SNOMED Code(s): 772278345515764482 Code(s): U07.1 - COVID-19; J12.82 - PNEUMONIA DUE TO CORONAVIRUS DISEASE 2019 Status: Acute Current Visit: Yes (2) Hypoxia SNOMED Code(s): 603749450 Code(s): R09.02 - HYPOXEMIA Status: Acute Current Visit: Yes (3) Elevated d-dimer SNOMED Code(s): 060473324 Code(s): R79.89 - OTHER SPECIFIED ABNORMAL FINDINGS OF BLOOD CHEMISTRY Status: Acute Current Visit: Yes Annotation/Comment:: PE ruled out. 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 SNOMED Code(s): 610493176 Code(s): H59.819 - CHORIORETINAL SCARS AFTER SURGERY FOR DETACHMENT, UNSP EYE Status: Chronic Current Visit: Yes (9) Nuclear cataract SNOMED Code(s): 08904934 Code(s): XAE7944 - Status: Chronic Current Visit: Yes (10) History of retinal detachment SNOMED Code(s): 952444892 Code(s): Z86.69 - PERSONAL HISTORY OF DIS OF THE NERVOUS SYS AND SENSE ORGANS Status: Chronic Current Visit: Yes (11) History of total bilateral knee replacement SNOMED Code(s): 7620436479878, 759158134, 3850703770994, [id number] Code(s): Z96.653 - PRESENCE OF ARTIFICIAL KNEE JOINT, BILATERAL Status: Chronic Current Visit: Yes - Problem List Review Problem List Initiated/Reviewed/Updated: Yes - My Orders Last 24 Hours: My Active Orders 01/21/21 Dinner Regular Diet [DIET] 01/21/21 17:20 CULTURE SPUTUM + SMEAR [RM] Stat 01/21/21 17:59 Oxygen Therapy [RC] 02 RT Incentive Spirometry [RC] ASDIRECTED Up ad Viviana [RC] ASDIRECTED Vital Signs [RC] 00,04,08,12,16,20 Acetaminophen [TylenoL] 650 mg PO Q4H PRN Ondansetron [Zofran ODT] 4 mg PO Q4H PRN Isolation [COMM] Stat Resuscitation Status Routine 01/21/21 18:00 Antiembolic Hose [OM.PC] Per Unit Routine 01/21/21 18:02 Isolation [COMM] Routine 01/21/21 18:03 Overnight Pulse Oximetry [RC] Click to Edit Pulse Oximetry Continuous Monitoring [OM.PC] Routine 01/21/21 18:04 Communication Order [RC] Q1HWA 01/21/21 18:09 RT Aerosol Therapy [RC] ASDIRECTED Benzonatate [Tessalon Perles] 100 mg PO Q6H PRN 01/21/21 18:15 guaiFENesin [Mucinex] 600 mg PO BID 01/21/21 19:00 Azithromycin [Zithromax] 500 mg Sodium Chloride 0.9% [Normal Saline (AdvBag)] 250 ml IV Q24H cefTRIAXone [Rocephin] 1 gm IVPUSH Q24H 01/21/21 19:15 Enoxaparin [Lovenox] 40 mg SUBCUT DAILY 01/21/21 21:00 Budesonide [Pulmicort] 0.5 mg NEB BIDRT Simvastatin [Zocor] 80 mg PO BEDTIME traZODone 100 mg PO BEDTIME 01/22/21 09:00 Cetirizine [ZyrTEC] 10 mg PO DAILY Cholecalciferol (Vitamin D3) [Vitamin D3] 125 mcg PO DAILY Folic Acid 1 mg PO DAILY Losartan [Cozaar] 100 mg PO DAILY Zinc Sulfate [Zincate] 220 mg PO DAILY dexAMETHasone [Decadron] 6 mg IVPUSH DAILY - Plan Plan:: 1. Pneumonia, viral & bacterial: Repeat CBC & CMP tomorrow. Dexamethasone 6 mg IV daily. Rocephin & Azithromycin day 2. Mucinex 600 mg bid, Flutter valve & incentive spirometry q1hwa, will try to get sputum culture. Blood cultures pending. Continue Zinc 220 mg daily and Vitamin D3 5000 units daily. Budesonide neb bid. Isolation: droplet. O2 by nc, continuous pulse oximetry. 2. Elevated D Dimer: ruled pulmonary embolism. 3. Dehydration: saline lock. 4. Discharge planning: anticipate 48 hrs of treatment, plan to discharge back to home. Continue home medication except Methotrexate. Adjust treatments as necessary.
[2021-01-22] MEDS: Benzonatate 100 MG Cap PO PRN (17:04)
[2021-01-22] MEDS: Azithromycin 500 MG in Sodium Chloride 0.9% 250 ML IV SCH (18:35)
[2021-01-22] MEDS: cefTRIAXone 1 GM Vial IVPUSH SCH (20:05)
[2021-01-22] MEDS: Simvastatin 40 MG Tab PO SCH (21:09)
[2021-01-22] MEDS: traZODone 100 MG Tab PO SCH (21:51)
[2021-01-22] MEDS: Acetaminophen 325 MG Tab PO PRN (22:04)
[2021-01-23] MEDS: Budesonide 0.5 MG/2 ML Neb Susp NEB SCH ×2 (06:51→21:21)
[2021-01-23] MEDS ORDERED: Simvastatin 40 MG Tab PO SCH (08:29)
[2021-01-23] MEDS ORDERED: Cetirizine 10 MG Tab PO PRN (09:00)
[2021-01-23] MEDS: guaiFENesin 600 MG Tab.ER PO SCH ×2 (09:56→21:21)
[2021-01-23] MEDS: Enoxaparin 40 MG/0.4 ML Syringe SUBCUT SCH (09:56)
[2021-01-23] MEDS: Folic Acid 1 MG Tab PO SCH (09:57)
[2021-01-23] MEDS: Zinc Sulfate 220 MG Cap PO SCH (09:57)
[2021-01-23] MEDS: Cholecalciferol (Vitamin D3) 25 MCG Tab PO SCH (09:57)
[2021-01-23] MEDS: Dexamethasone 4 MG/ML SDV IVPUSH SCH (09:59)
[2021-01-23] MEDS: Losartan 100 MG Tab PO SCH (10:05)
--- NOTE | 2021-01-23 11:06 | PCM.PN ---
- General Info Date of Service: 01/23/21 Subjective Update: WBC is up today after 2 doses of Dexamethasone, was 9.6 yesterday. Clinically he is improving, weaned down on his oxygen. He had off during my exam, was at 89%, but with deep breaths came up to 91-92%. He is getting IS up to 1300, and flutter valve is helping expectoration. Saline locked his IV yesterday. He did drop down to 45 last night and up to 60 this morning. He normally wears CPAP at night, doesn't go without it, his can bring in for tonight. No diarrhea. No fevers. States he's feeling much better. - Patient Data Vitals - Most Recent: Last Vital Signs Temp 97.6 F 01/23/21 08:00 Pulse 48 L 01/23/21 08:00 Resp 19 01/23/21 08:00 BP 127/67 01/23/21 10:05 Pulse Ox 94 L 01/23/21 08:00 Weight - Most Recent: 241 lb I&O - Last 24 Hours: Intake & Output 01/22/21 01/23/21 01/23/21 22:59 06:59 14:59 Intake Total 250 Balance 250 Lab Results Last 24 Hours: Laboratory Results - last 24 hr 01/23/21 01/23/21 Range/Units 06:35 06:35 WBC 15.8 H (3.2-10.1) x10-3/uL RBC 3.87 L (3.90-5.90) x10(6)uL Hgb 11.5 L (12.9-17.7) g/dL Hct 34.6 L (38.3-50.1) % MCV 89.4 (80.8-98.7) fL MCH 29.6 (27.0-33.3) pg MCHC 33.1 (28.7-35.3) g/dL RDW 13.5 (12.4-15.0) % Plt Count 387 (117-477) x10(3)uL MPV 6.9 (6.7-11.0) fL Add Manual Diff Yes Neutrophils % (Manual) 85 H (46-82) % Lymphocytes % (Manual) 8 L (13-37) % Monocytes % (Manual) 7 (4-12) % Sodium 141 (135-145) mmol/L Potassium 4.0 (3.5-5.3) mmol/L Chloride 107 (100-110) mmol/L Carbon Dioxide 26 (21-32) mmol/L BUN 19 H (7-18) mg/dL Creatinine 0.9 (0.70-1.30) mg/dL Est Cr Clr Drug Dosing 111.16 mL/min Estimated GFR (MDRD) > 60 (>60) BUN/Creatinine Ratio 21.1 H (9-20) Glucose 103 (80-116) mg/dL Calcium 7.8 L (8.6-10.2) mg/dL Total Bilirubin 0.5 (0.1-1.3) mg/dL AST 43 H D (5-25) IU/L ALT 83 H D (12-36) U/L Alkaline Phosphatase 113 H (56-112) IU/L Total Protein 5.7 L (6.0-8.0) g/dL Albumin 2.0 L (3.2-4.6) g/dL Globulin 3.7 g/dL Albumin/Globulin Ratio 0.5 Florencio Results Last 24 Hours: Microbiology 01/21/21 14:50 Aerobic Blood Culture - Preliminary Blood - Venous - Lab Draw NO GROWTH AFTER 1 DAY Anaerobic Blood Culture - Preliminary NO GROWTH AFTER 1 DAY 01/21/21 14:40 Aerobic Blood Culture - Preliminary Blood - Venous NO GROWTH AFTER 1 DAY Anaerobic Blood Culture - Preliminary NO GROWTH AFTER 1 DAY Med Orders - Current: Current Medications Acetaminophen (Acetaminophen 325 Mg Tab) 650 mg PO Q4H PRN PRN Reason: Pain (Mild 1-3)/fever Last Admin: 01/22/21 22:04 Dose: 650 mg Documented by: Benzonatate (Benzonatate 100 Mg Cap) 100 mg PO Q6H PRN PRN Reason: Cough Last Admin: 01/22/21 17:04 Dose: 100 mg Documented by: Budesonide (Budesonide 0.5 Mg/2 Ml Neb Susp) 0.5 mg NEB BIDRT [facility] Last Admin: 01/23/21 06:51 Dose: 0.5 mg Documented by: Ceftriaxone Sodium (Ceftriaxone 1 Gm Vial) 1 gm IVPUSH Q24H CARITO Last Admin: 01/22/21 20:05 Dose: 1 gm Documented by: Cetirizine HCl (Cetirizine 10 Mg Tab) 10 mg PO DAILY PRN PRN Reason: ALLERGIES Cholecalciferol (Cholecalciferol (Vitamin D3) 25 Mcg Tab) 125 mcg PO DAILY [facility] Last Admin: 01/23/21 09:57 Dose: 125 mcg Documented by: Dexamethasone (Dexamethasone 4 Mg/Ml Sdv) 6 mg IVPUSH DAILY [facility] Stop: 01/30/21 09:01 Last Admin: 01/23/21 09:59 Dose: 6 mg Documented by: Enoxaparin Sodium (Enoxaparin 40 Mg/0.4 Ml Syringe) 40 mg SUBCUT DAILY [facility] Last Admin: 01/23/21 09:56 Dose: 40 mg Documented by: Folic Acid (Folic Acid 1 Mg Tab) 1 mg PO DAILY [facility] Last Admin: 01/23/21 09:57 Dose: 1 mg Documented by: Guaifenesin (Guaifenesin 600 Mg Tab.Er) 600 mg PO BID [facility] Last Admin: 01/23/21 09:56 Dose: 600 mg Documented by: Azithromycin 500 mg/ Sodium (Chloride) 250 mls @ 250 mls/hr IV Q24H [facility] Stop: 01/25/21 19:59 Last Admin: 01/22/21 18:35 Dose: 250 mls/hr Documented by: Losartan Potassium (Losartan 100 Mg Tab) 100 mg PO DAILY [facility] Last Admin: 01/23/21 10:05 Dose: 100 mg Documented by: Ondansetron HCl (Ondansetron 4 Mg Tab.Dis) 4 mg PO Q4H PRN PRN Reason: nausea, able to take PO Simvastatin (Simvastatin 40 Mg Tab) 40 mg PO BEDTIME [facility] Sodium Chloride (Sodium Chloride 0.9% 10 Ml Syringe) 10 ml FLUSH ASDIRECTED PRN PRN Reason: Keep Vein Open Last Admin: 01/22/21 20:06 Dose: 10 ml Documented by: Trazodone HCl (Trazodone 100 Mg Tab) 100 mg PO BEDTIME [facility] Last Admin: 01/22/21 21:51 Dose: 100 mg Documented by: Zinc Sulfate (Zinc Sulfate 220 Mg Cap) 220 mg PO DAILY [facility] Last Admin: 01/23/21 09:57 Dose: 220 mg Documented by: Discontinued Medications Cetirizine HCl (Cetirizine 10 Mg Tab) 10 mg PO DAILY [facility] Last Admin: 01/22/21 09:24 Dose: Not Given Documented by: Dexamethasone (Dexamethasone 4 Mg/Ml Sdv) 6 mg IVPUSH ONETIME ONE Stop: 01/21/21 15:08 Last Admin: 01/21/21 15:44 Dose: 6 mg Documented by: Sodium Chloride (Normal Saline) 500 mls @ 999 mls/hr IV .BOLUS ONE Stop: 01/21/21 15:03 Last Admin: 01/21/21 14:33 Dose: 999 mls/hr Documented by: Sodium Chloride (Normal Saline) 1,000 mls @ 100 mls/hr IV ASDIRECTED [facility] Last Admin: 01/22/21 05:57 Dose: 100 mls/hr Documented by: Iopamidol (Iopamidol 755 Mg/Ml 100 Ml Bottle) 85 ml IV . DIRECTED ONE Stop: 01/21/21 15:53 Last Admin: 01/21/21 16:16 Dose: 85 ml Documented by: Sildenafil Citrate (Sildenafil 20 Mg Tab) 20 mg PO TID [facility] Last Admin: 01/21/21 21:30 Dose: Not Given Documented by: Simvastatin (Simvastatin 40 Mg Tab) 80 mg PO BEDTIME [facility] Last Admin: 01/22/21 21:09 Dose: 80 mg Documented by: - Exam General: Alert, Oriented, Cooperative, No Acute Distress Lungs: Clear to Auscultation, Normal Respiratory Effort, Crackles (bibasilar). No: Wheezing Cardiovascular: Regular Rate, Regular Rhythm GI/Abdominal Exam: Normal Bowel Sounds, Soft, Non-Tender, No Distention Extremities: No Pedal Edema, Normal Capillary Refill Peripheral Pulses: 2+: Radial (L), Radial (R), Dorsalis Pedis (L), Dorsalis Pedis (R) Skin: Warm, Dry, Intact - Patient Data Lab Results Last 24 hrs: Laboratory Results - last 24 hr 01/23/21 01/23/21 Range/Units 06:35 06:35 WBC 15.8 H (3.2-10.1) x10-3/uL RBC 3.87 L (3.90-5.90) x10(6)uL Hgb 11.5 L (12.9-17.7) g/dL Hct 34.6 L (38.3-50.1) % MCV 89.4 (80.8-98.7) fL MCH 29.6 (27.0-33.3) pg MCHC 33.1 (28.7-35.3) g/dL RDW 13.5 (12.4-15.0) % Plt Count 387 (117-477) x10(3)uL MPV 6.9 (6.7-11.0) fL Add Manual Diff Yes Neutrophils % (Manual) 85 H (46-82) % Lymphocytes % (Manual) 8 L (13-37) % Monocytes % (Manual) 7 (4-12) % Sodium 141 (135-145) mmol/L Potassium 4.0 (3.5-5.3) mmol/L Chloride 107 (100-110) mmol/L Carbon Dioxide 26 (21-32) mmol/L BUN 19 H (7-18) mg/dL Creatinine 0.9 (0.70-1.30) mg/dL Est Cr Clr Drug Dosing 111.16 mL/min Estimated GFR (MDRD) > 60 (>60) BUN/Creatinine Ratio 21.1 H (9-20) Glucose 103 (80-116) mg/dL Calcium 7.8 L (8.6-10.2) mg/dL Total Bilirubin 0.5 (0.1-1.3) mg/dL AST 43 H D (5-25) IU/L ALT 83 H D (12-36) U/L Alkaline Phosphatase 113 H (56-112) IU/L Total Protein 5.7 L (6.0-8.0) g/dL Albumin 2.0 L (3.2-4.6) g/dL Globulin 3.7 g/dL Albumin/Globulin Ratio 0.5 Result Diagrams: 01/23/21 06:35 01/23/21 06:35 Florencio Results Last 24 hrs: Microbiology 01/21/21 14:50 Aerobic Blood Culture - Preliminary Blood - Venous - Lab Draw NO GROWTH AFTER 1 DAY Anaerobic Blood Culture - Preliminary NO GROWTH AFTER 1 DAY 01/21/21 14:40 Aerobic Blood Culture - Preliminary Blood - Venous NO GROWTH AFTER 1 DAY Anaerobic Blood Culture - Preliminary NO GROWTH AFTER 1 DAY Sepsis Event Note - Evaluation Sepsis Screening Result: No Definite Risk - Focused Exam Vital Signs: Vital Signs Temp Pulse Resp BP BP Pulse Ox Pulse Ox 01/23/21 10:05 127/67 01/23/21 08:00 97.6 F 48 L 19 127/67 94 L 01/23/21 07:05 60 01/23/21 04:00 97.9 F 60 20 131/79 95 01/23/21 02:00 98.1 F 45 L 20 125/68 95 95 - Problem List & Annotations (1) Pneumonia due to COVID-19 virus SNOMED Code(s): 295370556729579996 Code(s): U07.1 - COVID-19; J12.82 - PNEUMONIA DUE TO CORONAVIRUS DISEASE 2019 Status: Acute Current Visit: Yes (2) Hypoxia SNOMED Code(s): 098417768 Code(s): R09.02 - HYPOXEMIA Status: Acute Current Visit: Yes Annota tion/Comment:: improving (3) Elevated d-dimer SNOMED Code(s): 641597791 Code(s): R79.89 - OTHER SPECIFIED ABNORMAL FINDINGS OF BLOOD CHEMISTRY Status: Acute Current Visit: Yes Annotation/Comment:: PE ruled out. 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 SNOMED Code(s): 713979071 Code(s): H59.819 - CHORIORETINAL SCARS AFTER SURGERY FOR DETACHMENT, UNSP EYE Status: Chronic Current Visit: Yes (8) Nuclear cataract SNOMED Code(s): 03825097 Code(s): IZB3707 - Status: Chronic Current Visit: Yes (9) History of retinal detachment SNOMED Code(s): 307600338 Code(s): Z86.69 - PERSONAL HISTORY OF DIS OF THE NERVOUS SYS AND SENSE ORGANS Status: Chronic Current Visit: Yes (10) History of total bilateral knee replacement SNOMED Code(s): 2460839795669, 546509299, 4428471172428, 55482904115941 Code(s): Z96.653 - PRESENCE OF ARTIFICIAL KNEE JOINT, BILATERAL Status: Chronic Current Visit: Yes - Problem List Review Problem List Initiated/Reviewed/Updated: Yes - My Orders Last 24 Hours: My Active Orders 01/22/21 14:06 Convert IV to Peripheral Lock [Convert IV to Saline Lock] [OM.PC] Routine 01/23/21 08:29 Simvastatin [Zocor] 40 mg PO BEDTIME 01/23/21 09:00 Cetirizine [ZyrTEC] 10 mg PO DAILY PRN - Plan Plan:: 1. Pneumonia, viral & bacterial: CMP tomorrow, LFTs trending down. Dexamethasone 6 mg IV daily. Rocephin & Azithromycin day 3. Mucinex 600 mg bid, Flutter valve & incentive spirometry q1hwa, will try to get sputum culture. Blood cultures no growth to date. Sputum culture pending. Continue Zinc 220 mg daily and Vitamin D3 5000 units daily. Budesonide neb bid. Isolation: droplet. weaning oxygen, continue to monitor today if he maintains 90% on room air then possibly home tomorrow. 2. Sleep apnea: CPAP for bedtime, bradycardiac overnight, will bring in his machine. 3. Discharge planning: anticipate 24 hrs of treatment, plan to discharge back to home. Adjust treatments as necessary.
[2021-01-23] MEDS: Benzonatate 100 MG Cap PO PRN ×2 (13:21→21:27)
[2021-01-23] MEDS: cefTRIAXone 1 GM Vial IVPUSH SCH (19:06)
[2021-01-23] MEDS: Azithromycin 500 MG in Sodium Chloride 0.9% 250 ML IV SCH (19:07)
[2021-01-23] MEDS: traZODone 100 MG Tab PO SCH (21:22)
[2021-01-23] MEDS: Acetaminophen 325 MG Tab PO PRN (21:43)
[2021-01-24] MEDS: Budesonide 0.5 MG/2 ML Neb Susp NEB SCH (06:30)
[2021-01-24] MEDS ORDERED: Dexamethasone 2 MG Tab PO SCH (08:00)
[2021-01-24] MEDS: Losartan 100 MG Tab PO SCH (08:45)
[2021-01-24] MEDS: Dexamethasone 4 MG/ML SDV IVPUSH SCH (08:51)
[2021-01-24] MEDS: Enoxaparin 40 MG/0.4 ML Syringe SUBCUT SCH (08:53)
[2021-01-24] MEDS: Folic Acid 1 MG Tab PO SCH (08:53)
[2021-01-24] MEDS: guaiFENesin 600 MG Tab.ER PO SCH (08:54)
[2021-01-24] MEDS: Cholecalciferol (Vitamin D3) 25 MCG Tab PO SCH (08:54)
[2021-01-24] MEDS: Zinc Sulfate 220 MG Cap PO SCH (08:57)
[2021-01-24] MEDS ORDERED: Doxycycline 100 MG Tab PO SCH (11:00)
--- NOTE | 2021-01-24 17:46 | PCM.DCSUM1 ---
Discharge Summary - Hospital Course HPI Initial Comments: Lior presented to ER with worsening shortness of breath, weakness. He had presented to ER on 01/16 was diagnosed with Covid, symptoms had started on 01/09, loss of taste, smell, shortness of breath, cough, diarrhea. He was saturating well on 01/16, did not require hospitalization and received Monoclonal antibody at that time as well as IVF. His was encouraging fluids since then, has had no appetite; has had increased headache(06/15), chest pain and shortness of breath. His saturations at home have been 85% when he wakes up and then goes up to 91-92% later in the day. Had progressive weakness over the past 2 days, decreased ability to get around. His reported 36.9C fever, has not taken Tylenol for this. He also has been taking Tesselon perles, Zinc 100 mg and Vitamin D3 10,000 units daily. No ear pain, sinus congestion, sore throat, abdominal pain, nausea, vomiting, diarrhea, dysuria, frequency, or hematuria. History of Peripheral venous insufficiency on right, wears compression stockings. In ER: O2 came up to 94% on 2L by NC. WBC 10.7, Neutrophils 84%, CRP 39.1. D Dimer 4.04. VBG pH 7.39. AST/ALT increased since Saturday. CTA no pulmonary embolism present but has bilateral infiltrates. Dexamethasone 6 mg IV given in ER. Lior declined Remdesivir treatment at this time, he is 13 days out from symptoms so unlikely it would be beneficial. He is FULL CODE. Discussed admission with Lior and his , questions answered and they are agreeable for admission. Diagnosis: Stroke: No - Discharge Data Discharge Date: 01/24/21 Discharge Disposition: Home, Self-Care 01 Condition: Good - Referral to Home Health Primary Care Physician: Og De La O, DO - Discharge Diagnosis/Problem(s) (1) Pneumonia due to COVID-19 virus SNOMED Code(s): 205514195911857600 ICD Code: U07.1 - COVID-19; J12.82 - PNEUMONIA DUE TO CORONAVIRUS DISEASE 2019 Status: Acute (2) Hypoxia SNOMED Code(s): 707827809 ICD Code: R09.02 - HYPOXEMIA Status: Acute Problem Details: improving (3) Elevated d-dimer SNOMED Code(s): 647109678 ICD Code: R79.89 - OTHER SPECIFIED ABNORMAL FINDINGS OF BLOOD CHEMISTRY Status: Acute Problem Details: PE ruled out. 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 SNOMED Code(s): 112166693 ICD Code: H59.819 - CHORIORETINAL SCARS AFTER SURGERY FOR DETACHMENT, UNSP EYE Status: Chronic (8) Nuclear cataract SNOMED Code(s): 38775381 ICD Code: PAJ9882 - Status: Chronic (9) History of retinal detachment SNOMED Code(s): 896741502 ICD Code: Z86.69 - PERSONAL HISTORY OF DIS OF THE NERVOUS SYS AND SENSE ORGANS Status: Chronic (10) History of total bilateral knee replacement SNOMED Code(s): 4002531999890, 474493936, 1126437684455, 13759236466055 ICD Code: Z96.653 - PRESENCE OF ARTIFICIAL KNEE JOINT, BILATERAL Status: Chronic - Patient Summary/Data Hospital Course: He was on 4L since admission, did have desaturation down to 64% on 01/22 pm(he had taken off his oxygen), came back up with 4L. WBC was 10.7 then 9.4, went up to 15.8 with 85% neutrophils after 2 doses of Dexamethasone. His AST, ALT and ALP trended down from 85, 127, 169 on admission to 33, 73, 107 on discharge respectively. His creatinine remained in normal range. He had 4 days of Dexamethasone along with Budesonide nebs bid. Mucinex 600 mg bid with flutter valve and Incentive spirometry q1hwa. Continue Zinc 220 mg and Vit D3 5000 units daily. He had 3 days of Rocephin & Azithromycin, changed to Doxycycline 100 mg b id this morning which he tolerated. IVF were discontinued on 01/22 and his appetite improved during hospital stay, was able to maintain his hydration. His blood pressures improved so will restart his HCTZ on discharge. - Patient Instructions Diet: Usual Diet as Tolerated Activity: As Tolerated Showering/Bathing: May Shower Notify Provider of: Fever, Increased Pain, Nausea and/or Vomiting Other/Special Instructions: Follow up with Dr De La O in 1 week for recheck pneumonia. - Discharge Plan *PRESCRIPTION DRUG MONITORING PROGRAM REVIEWED*: Not Applicable *COPY OF PRESCRIPTION DRUG MONITORING REPORT IN PATIENT GIACOMO: Not Applicable Prescriptions/Med Rec: Doxycycline [Vibra-Tabs] 100 mg PO BID #14 tablet Home Medications: Home Meds Aspirin 81 mg PO Q48H 01/16/21 [History] Benzonatate [Tessalon Perle] 100 mg PO Q6H PRN #20 capsule 01/16/21 [Rx] Cetirizine [ZyrTEC] 10 mg PO DAILY PRN 01/16/21 [History] Folic Acid 1 mg PO DAILY 01/16/21 [History] Methotrexate 15 mg PO WE 01/16/21 [History] Simvastatin 40 mg PO BEDTIME 01/16/21 [History] traZODone 100 mg PO BEDTIME 01/16/21 [History] Ascorbate Calcium [Vitamin C] 500 mg PO DAILY 01/23/21 [History] Cholecalciferol (Vitamin D3) [Vitamin D3] 125 mcg PO DAILY 01/23/21 [History] Losartan/Hydrochlorothiazide [Losartan-HCTZ 100-12.5 MG] 1 tab PO DAILY 01/23/21 [History] Zinc 100 mg PO DAILY 01/23/21 [History] Acetaminophen [Tylenol] 650 mg PO Q4H PRN tablet 01/24/21 [Rx] Doxycycline [Vibra-Tabs] 100 mg PO BID #14 tablet 01/24/21 [Rx] guaiFENesin [Mucinex] 600 mg PO BID tab.er 01/24/21 [Rx] Oxygen Therapy Mode: Room Air Patient Handouts: COVID-19 Frequently Asked Questions, Doxycycline tablets or capsules, Community-Acquired Pneumonia, Adult, Rggz-[id number] Forms: ED Department Discharge Referrals: Og De La O DO [Primary Care Provider] - - Discharge Summary/Plan Comment DC Time >30 min.: No Total # of Minutes for Discharge Time: 10 min - General Info Date of Service: 01/24/21 Subjective Update: Lior remained on room air yesterday, did not desaturate. His brought in his CPAP and he slept well overnight and did not require any oxygen supplementation. He is saturating 93% on room air. States he is feeling much better, would like to go home. He stated he did a recent course of Azithromycin prior to admission and asked about changing antibiotic for going home, I'm in agreement with this. - Patient Data Vitals - Most Recent: Last Vital Signs Temp 98.0 F 01/24/21 08:00 Pulse 66 01/24/21 08:00 Resp 18 01/24/21 08:00 BP 136/66 01/24/21 08:45 Pulse Ox 92 L 01/24/21 08:00 Weight - Most Recent: 241 lb Lab Results - Last 24 hrs: Laboratory Results - last 24 hr 01/24/21 Range/Units 06:30 Sodium 144 (135-145) mmol/L Potassium 3.9 (3.5-5.3) mmol/L Chloride 107 (100-110) mmol/L Carbon Dioxide 27 (21-32) mmol/L BUN 19 H (7-18) mg/dL Creatinine 0.9 (0.70-1.30) mg/dL Est Cr Clr Drug Dosing 86.31 mL/min Estimated GFR (MDRD) > 60 (>60) BUN/Creatinine Ratio 21.1 H (9-20) Glucose 84 (80-116) mg/dL Calcium 8.0 L (8.6-10.2) mg/dL Total Bilirubin 0.6 (0.1-1.3) mg/dL AST 33 H D (5-25) IU/L ALT 73 H D (12-36) U/L Alkaline Phosphatase 107 (56-112) IU/L Total Protein 5.7 L (6.0-8.0) g/dL Albumin 2.0 L (3.2-4.6) g/dL Globulin 3.7 g/dL Albumin/Globulin Ratio 0.5 ABI Results - Last 24 hrs: Microbiology 01/21/21 14:40 Aerobic Blood Culture - Preliminary Blood - Venous NO GROWTH AFTER 3 DAYS Anaerobic Blood Culture - Preliminary NO GROWTH AFTER 3 DAYS 01/21/21 14:50 Aerobic Blood Culture - Preliminary Blood - Venous - Lab Draw NO GROWTH AFTER 3 DAYS Anaerobic Blood Culture - Preliminary NO GROWTH AFTER 3 DAYS Med Orders - Current: Current Medications Discontinued Medications Acetaminophen (Acetaminophen 325 Mg Tab) 650 mg PO Q4H PRN PRN Reason: Pain (Mild 1-3)/fever Last Admin: 01/23/21 21:43 Dose: 650 mg Documented by: Benzonatate (Benzonatate 100 Mg Cap) 100 mg PO Q6H PRN PRN Reason: Cough Last Admin: 01/23/21 21:27 Dose: 100 mg Documented by: Budesonide (Budesonide 0.5 Mg/2 Ml Neb Susp) 0.5 mg NEB BIDRT [facility] Last Admin: 01/24/21 06:30 Dose: 0.5 mg Documented by: Ceftriaxone Sodium (Ceftriaxone 1 Gm Vial) 1 gm IVPUSH Q24H [facility] Last Admin: 01/23/21 19:06 Dose: 1 gm Documented by: Cetirizine HCl (Cetirizine 10 Mg Tab) 10 mg PO DAILY [facility] Last Admin: 01/22/21 09:24 Dose: Not Given Documented by: Cetirizine HCl (Cetirizine 10 Mg Tab) 10 mg PO DAILY PRN PRN Reason: ALLERGIES Cholecalciferol (Cholecalciferol (Vitamin D3) 25 Mcg Tab) 125 mcg PO DAILY [facility] Last Admin: 01/24/21 08:54 Dose: 125 mcg Documented by: Dexamethasone (Dexamethasone 4 Mg/Ml Sdv) 6 mg IVPUSH ONETIME ONE Stop: 01/21/21 15:08 Last Admin: 01/21/21 15:44 Dose: 6 mg Documented by: Dexamethasone (Dexamethasone 4 Mg/Ml Sdv) 6 mg IVPUSH DAILY [facility] Stop: 01/30/21 09:01 Last Admin: 01/24/21 08:51 Dose: 6 mg Documented by: Dexamethasone (Dexamethasone 2 Mg Tab) 6 mg PO DAILY@0800 [facility] Last Admin: 01/24/21 09:23 Dose: 6 mg Documented by: Doxycycline Hyclate (Doxycycline 100 Mg Tab) 100 mg PO BID [facility] Last Admin: 01/24/21 10:41 Dose: 100 mg Documented by: Enoxaparin Sodium (Enoxaparin 40 Mg/0.4 Ml Syringe) 40 mg SUBCUT DAILY [facility] Last Admin: 01/24/21 08:53 Dose: 40 mg Documented by: Folic Acid (Folic Acid 1 Mg Tab) 1 mg PO DAILY [facility] Last Admin: 01/24/21 08:53 Dose: 1 mg Documented by: Guaifenesin (Guaifenesin 600 Mg Tab.Er) 600 mg PO BID [facility] Last Admin: 01/24/21 08:54 Dose: 600 mg Documented by: Sodium Chloride (Normal Saline) 500 mls @ 999 mls/hr IV .BOLUS ONE Stop: 01/21/21 15:03 Last Admin: 01/21/21 14:33 Dose: 999 mls/hr Documented by: Sodium Chloride (Normal Saline) 1,000 mls @ 100 mls/hr IV ASDIRECTED [facility] Last Admin: 01/22/21 05:57 Dose: 100 mls/hr Documented by: Azithromycin 500 mg/ Sodium (Chloride) 250 mls @ 250 mls/hr IV Q24H [facility] Stop: 01/25/21 19:59 Last Admin: 01/23/21 19:07 Dose: 250 mls/hr Documented by: Iopamidol (Iopamidol 755 Mg/Ml 100 Ml Bottle) 85 ml IV . DIRECTED ONE Stop: 01/21/21 15:53 Last Admin: 01/21/21 16:16 Dose: 85 ml Documented by: Losartan Potassium (Losartan 100 Mg Tab) 100 mg PO DAILY [facility] Last Admin: 01/24/21 08:45 Dose: 100 mg Documented by: Ondansetron HCl (Ondansetron 4 Mg Tab.Dis) 4 mg PO Q4H PRN PRN Reason: nausea, able to take PO Sildenafil Citrate (Sildenafil 20 Mg Tab) 20 mg PO TID [facility] Last Admin: 01/21/21 21:30 Dose: Not Given Documented by: Simvastatin (Simvastatin 40 Mg Tab) 80 mg PO BEDTIME [facility] Last Admin: 01/22/21 21:09 Dose: 80 mg Documented by: Simvastatin (Simvastatin 40 Mg Tab) 40 mg PO BEDTIME [facility] Last Admin: 01/23/21 21:22 Dose: 40 mg Documented by: Sodium Chloride (Sodium Chloride 0.9% 10 Ml Syringe) 10 ml FLUSH ASDIRECTED PRN PRN Reason: Keep Vein Open Last Admin: 01/22/21 20:06 Dose: 10 ml Documented by: Trazodone HCl (Trazodone 100 Mg Tab) 100 mg PO BEDTIME [facility] Last Admin: 01/23/21 21:22 Dose: 100 mg Documented by: Zinc Sulfate (Zinc Sulfate 220 Mg Cap) 220 mg PO DAILY [facility] Last Admin: 01/24/21 08:57 Dose: 220 mg Documented by: - Exam General: Reports: Alert, Oriented, Cooperative, No Acute Distress Lungs: Reports: Clear to Auscultation, Normal Respiratory Effort, Crackles (fine, improved air entry). Denies: Wheezing Cardiovascular: Reports: Regular Rate, Regular Rhythm GI/Abdominal Exam: Normal Bowel Sounds, Soft, Non-Tender, No Distention (Male) Exam: Deferred Rectal (Males) Exam: Deferred Extremities: No Pedal Edema, Normal Capillary Refill Skin: Reports: Warm, Dry, Intact
== END 2021-01-24 10:54 | disposition home or self-care (01) | DRG 177 ==
LOC: FB.ED 13:34 → FB.MS 17:06
PROVIDERS: ADMIT Family Medicine; ATTEND Family Medicine
PROC: 8E0ZXY6 Isolation (ICD-10-PCS; principal; 2021-01-21)
PROC: 3E0333Z Introduction of Anti-inflammatory into Peripheral Vein, Percutaneous Approach (ICD-10-PCS; 2021-01-21)
PROC: 3E0DX3Z Introduction of Anti-inflammatory into Mouth and Pharynx, External Approach (ICD-10-PCS; 2021-01-24)
DX: U07.1 COVID-19 (principal); J12.89 Other viral pneumonia; J96.01 Acute respiratory failure with hypoxia; J12.82 Pneumonia due to coronavirus disease 2019; J15.9 Unspecified bacterial pneumonia; M19.90 Unspecified osteoarthritis, unspecified site; M06.9 Rheumatoid arthritis, unspecified; H59.81 Chorioretinal scars after surgery for detachment; R79.89 Other specified abnormal findings of blood chemistry; I10 Essential (primary) hypertension; E78.5 Hyperlipidemia, unspecified; M06.09 Rheumatoid arthritis without rheumatoid factor, multiple sites; Z96.653 Presence of artificial knee joint, bilateral; E86.0 Dehydration; G47.30 Sleep apnea, unspecified; R09.02 Hypoxemia; Z79.82 Long term (current) use of aspirin; Z79.899 Other long term (current) drug therapy
CPT/HCPCS: 36415; 71275; 80053; 83605; 83735; 84484; 85025; 85379; 86140; 87040; 87070; 87205; 87804; 87804-59; 93005; 94150; 94640; 96374; 99285-25; A9270-GY; J0456; J0696; J1100; J1650; J7030; J7040; J7050; J8540; Q9967